=== PATIENT | male | born 1985 | race Caucasian/White ===

== ENCOUNTER 2024-05-03 21:28 | Outpatient (BNV) | payer OTHER, SELFPAY | END 2024-05-15 15:22 | PROVIDERS: Admitting Provider Psychiatry & Neurology Psychiatry; PCP Nurse Practitioner Family; Visit Provider Internal Medicine | DX: F25.1 Schizoaffective disorder, depressive type (principal) | CPT/HCPCS: 93010 ==

== ENCOUNTER 2024-05-03 21:28 | Inpatient (IN) | payer OTHER, SELFPAY ==
--- NOTE | ~2024-05-03 | CT_ITS ---
EXAMINATION: CT FOOT WITHOUT CONTRAST, RIGHT CLINICAL INFORMATION: Pain and instability. Fusion. COMPARISON: Right foot CT dated 04/23/2022. TECHNIQUE: Contiguous axial CT images of the right foot were obtained without contrast. Multiplanar reformats were provided and reviewed. This CT examination was performed using dose optimization techniques as appropriate, variously including the following: *Automated exposure control *Adjustment of mA and/or kV according to patient size (this includes techniques or standardized protocols for targeted exams where dose is matched to indication/reason for exam; i.e. extremities or head) *Use of iterative reconstruction technique DLP: 181 mGy-cm FINDINGS: Oblique orthopedic screw and dorsal orthopedic staple across the first tarsometatarsal joint. Additional dorsal stabilization plates and fixation screws across the second and third tarsometatarsal joints. No hardware fracture. No perihardware lucency to suggest loosening or infection. 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 Prominent osseous bridging along the second tarsometatarsal joint with mild persistence of the joint space medially. Overall osseous bridging appears to involve approximately 80% of the joint surface. Partial osseous bridging across the third tarsometatarsal joint dorsally and laterally in the region of the orthopedic hardware. Osseous bridging involves approximately 40% of the joint surface. No acute fracture or dislocation. Joint space narrowing with subchondral cystic change and marginal osteophytes at the fourth and fifth tarsometatarsal joints. Bone graft donor site within the calcaneus. No concerning lytic or blastic osseous lesion. Tiny dorsal calcaneal spur. No abnormal soft tissue mass or fluid collection. No large joint effusion. The visualized flexor and extensor tendons are grossly intact; however, evaluation is limited on CT examination. CT/CT foot RT wo IV con IMPRESSION: 1. 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 Prominent osseous bridging along the second tarsometatarsal joint involving approximately 80% of the joint surface. Partial osseous bridging across the third tarsometatarsal joint involving approximately 40% of the joint surface. 2. 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
--- NOTE | ~2024-05-03 | XR_ITS ---
EXAMINATION: XR SHOULDER, LEFT CLINICAL INFORMATION: Pain COMPARISON: None available. TECHNIQUE: Three views of the left shoulder. FINDINGS: The bones and soft tissues are normal. No fracture. Glenohumeral and acromioclavicular alignment is anatomic with normal joint space. No abnormal soft tissue calcifications. XR/XR shoulder LT min 2V IMPRESSION: Normal left shoulder.
[2024-05-03 21:52] VITALS: BP 136/75; PULSE 58; RESP 16; TEMP 36.9; O2SAT 98
--- NOTE | 2024-05-03 22:51 | PC.ADMIT ---
Addendum entered by Lila Cheema RN 05/03/24 23:04: PT ARRIVED @ 2139 VIA STRETCHER Original Note: PT TRANSFERED TO FROM [facility] AND HAS AN ACCEPTED CV. PT HAD SKIN CHECK PERFORMED AND PT NOTED AND REPORTED TO HAVE A DX OF ECZEMA AND NUMEROUS SCALEY PATCHES COVERING MOST AREAS OF HIS SKIN. HIS VITALS WERE OBTAINED, AND PT WAS ORIENTED TO THE UNIT. PT IS EXTREMELY PARANOID AND UNABLE TO FULLY PARTICIPATE further in the ADMISSION PROCESS other than to state his was brought in by ambulance after his family tracked his phone and found him standing on the bridge in [place] where he intended to jump to end his life. During assessment pt WAS PREOCCUPIED, PARANOID, AND CONSTANTLY LOOKING OVER HIS SHOULDER and he reported he is having CAH TO CHOKE MYSELF . pT PLACED ON 5MIN CHECKS FOR SAFETY. He WAS EXTREMELY PARANOID WHEN SHOWN HIS ROOM AND WAS UNCOMFORTABLE WITH THE IDEA OF HAVING A ROOM mate SO PT WAS SHOWN TO GROUP ROOM B TO RESIDE AND QUICKLY WENT TO SLEEP. ACCORDING TO NURSE TO NURSE OBTAINED BY THIS STOCK REPLENISHER, PT REPORTED HE IS TRANSGENDER, USES SHE/HER PRONOUNS AND LIKES TO USE THE NAME AURELIO, HOWEVER, WHEN THE PATIENT ARRIVED HE REPORTED HE GOES BY THE NAME MATILDE AND WANTS TO ROOM WITH A MALE.
[2024-05-04 08:33] VITALS: BP 129/80; PULSE 62; RESP 16; TEMP 36.9; O2SAT 98
--- NOTE | 2024-05-04 10:05 | P.HPPS_ITS ---
HPI Date of Service: 05/04/24 Chief Complaint: Unspecified problem related to unspecified psychol Sources of Information: patient interviewed, chart reviewed and crisis/core team assessment reviewed HPI Subjective Notes: Conditional Voluntary Narrative: 39 yo female transgender patient with history of schizoaffective disorder. During the crisis evaluation wanted to be referred to as Mary Beth. Today wants to be referred to as Jonathon. Patient was admitted from [facility]. Patient presented to [facility] crisis with suicidal ideation with a plan to jump off a bridge as well as increased paranoia and command AH to hurt self. Patient reports not taking medications over the past week or so saying I thought I don't need them . Patient unsure of the exact most recent medication regimen. Pharmacy [facility] and they were closed. Focused on anxiety today saying Buspar doesn't help. Also feeling agitated earlier in the day. Pacing and restless. Reports increased AH and paranoia. Difficult to interview initially. When asked if Haldol was prescribed, reports being on Haldol Dec in the past with some benefit and without major side effects. Patient received Haldol 5 mg and Ativan 1 mg. Patient calmed. Was able to say has been homeless after having conflict with parents and was kicked out. Reports was planning on jumping off bridge but parents called and decided not to go ahead with that plan and presented to crisis. Patient also has been burning self on forearm with a steam gigger. Patient also reported OD on Seroquel recently (04/30/24). Past Psychiatric History: Multiple inpatient psychiatric hospital stays including [facility], [place], [facility], [facility]. Reported Hx of TBI age 8. Prior suicide attempts by OD and reportedly tied sheet around neck but decided not to go ahead with the attempt Current treatment at [facility]. Psychiatrist left agency and patient awaiting new psychiatrist. Medical Evaluation Reviewed: Yes [facility] Medical History (Updated 05/04/24 @ 23:00 by Wesly Dodd MD) Schizophrenia Polysubstance use disorder Family History: None reported. Social History: Lived with parents until recently. Raised by family. Struggled with learning and ADHD in school. SSI. [facility] are rep payee. Substance History: Past history of opioid use. Current cannabis use. Trauma History: Bullying Diagnostics Vital Signs (24Hr): Vital Signs - 24 hr 05/03/24 21:52 05/04/24 08:33 Temperature 98.4 F 98.4 F Pulse Rate 58 62 Respiratory Rate 16 16 Blood Pressure 136/75 129/80 Pulse Oximetry 98 98 Oxygen Delivery Method Room Air Room Air Labs 05/04/24 08:34 Meds/Allergies Meds Home Medications ?Medication ?Instructions ?Recorded ?Confirmed ?Type buspirone 10 mg tablet 10 mg PO 6XD 05/04/24 05/04/24 History gabapentin 800 mg tablet 800 mg PO QID 05/04/24 05/04/24 History quetiapine 100 mg tablet 100 mg PO BEDTIME 05/04/24 05/04/24 History Allergies Allergies Allergy/AdvReac Type Severity Reaction Status Date / Time Penicillins Allergy Intermediate Swelling Verified 05/04/24 02:45 acetaminophen [APAP] Allergy Unknown Verified 05/04/24 02:45 hydrocodone Allergy Unknown Verified 05/04/24 02:45 Mental Status Exam Mental Status Exam Narrative: General appearance: Restless, anxious, pacing. Hospital gown. Unshaven. fair hygiene.? Eye contact: WNL. Musculoskeletal: +Psychomotor agitation. Legs bouncing when sitting. Normal muscle strength/tone, Normal gait and station, No abnormal involuntary movements like tremors, EPS or dyskinesia. Normal posture.??? Manner/behavior: Guarded Speech:? Fluent, with normal rate, tone and volume. Language: No receptive or expressive language impairment? Mood: I'm paranoid and anxious Affect: constricted range, irritable, congruent to mood and without lability? Thought process/associations: Linear with no flight of ideas or loose associations.?Perseverates on anxiety? Thought content:Paranoid.?? Hallucinations: AH. Command. Able to ask for help and doesn't have intent or plan to act on AH. No?flashbacks, nightmares or dissociation? ? Suicidality/self-destructive behavior: SI Homicidally/violence: none.? Reliability: fair.? ? Judgment: fair.? ? Insight: fair Cognition: Alert and oriented to time, place and person. Impulse control and emotional regulation: fair. Intelligence estimate: below average.? Assessment & Plan Assessment & Plan (1) Schizoaffective disorder, depressive type: Status: Acute Code(s): F25.1 - Schizoaffective disorder, depressive type Assessment and Plan: Patient with schizoaffective disorder, depressed, with SI and command AH with plan to jump off bridge and reported OD on Seroquel a few days prior to evaluation. Plan: - Admit to inpatient psychiatry - CV - Collateral information from family and providers. - Milieu treatment and group therapy. - Medications: Will give Haldol 5 mg and Ativan 2 mg TID PRN agitation/psychosis. - Social work evaluation. - Disposition planning. Patient educated on: medication risk/benefits and therapeutic strategies Reason for continued inpatient stay Substantial Risk for: harm to self, inability to function and rapid decompensation Statement Statement: I have reviewed the history and physical and performed a pertinent examination on my patient. No changes have occurred unless specified. If the History and Physical was not performed prior to admission, the Hospitalist's service will be consulted for completing the admission physical. Time Spent With Patient Time: Total time managing care of this patient today ____ minutes.
[2024-05-04] MEDS: hydrOXYzine HCL 25 MG TABLET PO ×2 (10:12→17:00)
[2024-05-04 10:15] LABS: Alanine Aminotransferase 20 U/L (0-40); Albumin Level 4.1 g/dL (3.5-5.0); Alkaline Phosphatase 76 U/L (39-117); Anion Gap 11 (12-20); Aspartate Amino Transferase 18 U/L (5-37); Bilirubin Total 0.3 mg/dL (0.0-1.0); Blood Urea Nitrogen 12 mg/dL (9-16); Carbon Dioxide 27 mmol/L (22-29); Chloride 103 mmol/L (96-108); Cholesterol 148 mg/dL (<200); Estimated Glomerular Filt Rate > 60; Glucose Fasting 100 mg/dL (60-99); HDL Cholesterol 43 mg/dL (>40); LDL Cholesterol Calculated 65 mg/dL (<100); Potassium 4.1 mmol/L (3.3-5.1); Sodium 137 mmol/L (135-145); Total Protein 6.9 g/dL (6.5-8.0); Triglycerides 203 mg/dL (<150)
[2024-05-04] MEDS: OLANZapine ODT 10 MG TAB.RAPDIS TRANSLINGU ×2 (10:32→21:35)
[2024-05-04] MEDS: LORazepam 1 MG TABLET PO (11:35)
[2024-05-04] MEDS: HaloperidoL 5 MG TABLET PO ×3 (11:36→21:38)
[2024-05-04] MEDS: Gabapentin 400 MG CAPSULE 800 MG PO ×2 (15:04→21:35)
--- NOTE | 2024-05-04 15:13 | HO.PM.IMCN ---
History of Present Illness Data of Consult Service Date: 05/04/24 Primary Care Provider: Philly Alcantar NP HPI Reason for consult: Admission H&P Pt is a 39-year-old transgender female who prefers to go by Olanta with a PMH significant for?polysubstance use disorder and schizophrenia who is admitted to [facility] psychiatry unit for increasing depression with SI with plan of jumping off a bridge. Medical consult for admission H&P. ?Patient was moved to the common room where they are seeing resting comfortably in bed. Patient is not receptive to interview or exam at this time. Review of medical records from [facility] ED show patient complained of chronic right foot pain for the past several months. Pain was around baseline at time of presentation, and patient reported he has seen Podiatry for this concern and is scheduled for a foot CT in the coming week. Patient otherwise had no acute medical complaints at that time. Did admit to using 2 g of cocaine just prior to presentation. Labs reviewed, grossly unremarkable. Vital signs stable. Review of Systems Review of Systems: Unable to obtain [facility] Medical History (Updated 05/04/24 @ 16:02 by NAOMI Matthews) Schizophrenia Polysubstance use disorder Social History Household Members: None Housing: Homeless Do you presently have visiting nurse or other home services: No Patient Tobacco Use Status: Former Tobacco user Tobacco use type: Cigarette Smoked in Last 30 Days: No e-Cigarette/Vaping Use: Never Used Patient Interested in Nicotine Replacement: No Patient Given Instructions on How to Stop Smoking: No Second Hand Smoke Exposure: No Use of substances other than those prescribed or required for medical reasons: Yes Substance Use Type: Crack/Cocaine, Marijuana and Opiates Substance Use Frequency: Weekly Last Used Substance: Weeks (ago) Currently Displaying Signs/Symptoms of Drug Intoxication Withdrawal: No Any prior treatment program specific to substance use: No Have you been hit, kicked, punched, or otherwise hurt by someone within the past year? If so, by whom?: No Do you feel safe in your current relationship?: No Current Relationship Is there a partner from a previous relationship who is making you feel unsafe now?: No Are you made to feel afraid or neglected: No Advance Directives: No Advance Directives Information Provided: No Suicidal Behavior: History of suicide attemps Current/Past Psychiatric Disorders: Psychotic disorder Wu Symptoms: Anxiety and Command hallucinations Access to Firearms: No Do you have thoughts of harming others: None Do you have a plan to hurt others: No Plan Recently lost weight without trying: No Eating poorly because of decreased appetite: No Nutrition Risks: No Nutritional Risk Poor oral hygiene: No Meds Allergies Allergy/AdvReac Type Severity Reaction Status Date / Time Penicillins Allergy Intermediate Swelling Verified 05/04/24 02:45 acetaminophen [APAP] Allergy Unknown Verified 05/04/24 02:45 hydrocodone Allergy Unknown Verified 05/04/24 02:45 Active Medications: Current Medications Acetaminophen (Acetaminophen 325 Mg Tablet) 650 mg PO Q6H PRN PRN Reason: Headache/Pain Mild Scale (1-3) Al Hydroxide/Mg Hydroxide (Magnesium Hydrox/Alum Hydrox 30 Ml Oral.Susp) 30 ml PO Q6H PRN PRN Reason: Heartburn/Nausea Gabapentin (Gabapentin 400 Mg Capsule) 800 mg PO TID HOLDEN Last Admin: 05/04/24 15:04 Dose: 800 mg Haloperidol (Haloperidol 5 Mg Tablet) 5 mg PO TID PRN PRN Reason: Anxiety Hydroxyzine HCl (Hydroxyzine Hcl 25 Mg Tablet) 25 mg PO Q6H PRN PRN Reason: Anxiety Last Admin: 05/04/24 10:12 Dose: 25 mg Magnesium Hydroxide (Milk Of Magnesia 30 Ml Oral.Susp) 30 ml PO DAILY PRN PRN Reason: Constipation Nicotine Polacrilex (Nicotine Polacrilex 2 Mg Gum) 2 mg BUCCAL Q2H PRN PRN Reason: Nicotine Cravings Olanzapine (Olanzapine Odt 10 Mg Tab.Rapdis) 10 mg TRANSLINGU BID HOLDEN Trazodone HCl (Trazodone Hcl 50 Mg Tablet) 50 mg PO BEDTIME MRX1 PRN PRN Reason: Insomnia Home Medications ?Medication ?Instructions ?Recorded ?Confirmed ?Last Taken ?Type buspirone 10 mg tablet 10 mg PO 6XD 05/04/24 05/04/24 Unknown History gabapentin 800 mg tablet 800 mg PO QID 05/04/24 05/04/24 Unknown History quetiapine 100 mg tablet 100 mg PO BEDTIME 05/04/24 05/04/24 Unknown History Physical Exam Vital Signs and Narrative: Vital Signs: Last Vital Signs Temp 98.4 F 05/04/24 08:33 Pulse 62 05/04/24 08:33 Resp 16 05/04/24 08:33 BP 129/80 05/04/24 08:33 Pulse Ox 98 05/04/24 08:33 O2 Del Method Room Air 05/04/24 08:33 Unable to perform Results Labs 05/04/24 08:34 Labs: Laboratory Results - last 24 hr 05/04/24 08:34 Anion Gap 11 L Estim Creat Clear Calc TNP Estimated GFR > 60 Fasting Glucose 100 H Calcium 9.0 Total Bilirubin 0.3 AST 18 ALT 20 Alkaline Phosphatase 76 Total Protein 6.9 Albumin 4.1 Triglycerides 203 H Cholesterol 148 LDL Cholesterol, Calc 65 HDL Cholesterol 43 Assessment and Plan (1) Medical clearance for psychiatric admission: Status: Acute Plan Pt is a 39-year-old transgender female who prefers to go by Mary Beth with a PMH significant for?polysubstance use disorder and schizophrenia who is admitted to [facility] psychiatry unit for increasing depression with SI with plan of jumping off a bridge. Medical consult for admission H&P. ?Patient was moved to the common room where they are seeing resting comfortably in bed. Patient is not receptive to interview or exam at this time. Mood disorder Plan as per Psychiatry Chronic right foot pain Has been ongoing for many months now Patient has seen Podiatry and has upcoming CT of foot scheduled Follow up outpatient Patient otherwise has no known chronic or acute medical complaints at this time. Will sign off now. Thank you for allowing us to participate in the care of this patient. Please re-consult if any acute issue or need arises.
[2024-05-04] MEDS: LORazepam 1 MG TABLET 2 MG PO ×2 (17:24→21:38)
[2024-05-04] MEDS: traZODone HCL 50 MG TABLET PO (21:35)
[2024-05-05 08:00] VITALS: BP 112/66; PULSE 54; RESP 18; TEMP 36.5; O2SAT 94
[2024-05-05] MEDS: OLANZapine ODT 10 MG TAB.RAPDIS TRANSLINGU (08:52)
[2024-05-05] MEDS: HaloperidoL 5 MG TABLET PO ×3 (08:52→16:02)
[2024-05-05] MEDS: LORazepam 1 MG TABLET 2 MG PO ×3 (08:52→16:02)
[2024-05-05] MEDS: Gabapentin 400 MG CAPSULE 800 MG PO ×3 (08:52→20:42)
--- NOTE | 2024-05-05 09:07 | P.PNPSI_ITS ---
Subjective Subjective Date of Service: 05/05/24 Reason For Visit: Unspecified problem related to unspecified psychol Interim History: Patient continues to be agitated and anxious. Says his symptoms continue and he is having hallucinations. Using haldol and ativan prn with only partial relief. He pushed a MHC last night. Says he was hearing voices to do so. Says VH are command to hurt himself. Says he used to take Seroquel at home. Says that was more effective. Review of Systems Review of Systems Unable to obtain Mental Status Exam Mental Status Exam Narrative: General appearance: Restless, anxious, pacing. Hospital gown. Unshaven. fair hygiene.? Eye contact: WNL. Musculoskeletal: +Psychomotor agitation. Legs bouncing when sitting. Normal muscle strength/tone, Normal gait and station, No abnormal involuntary movements like tremors, EPS or dyskinesia. Normal posture.??? Manner/behavior: Guarded Speech:? Fluent, with normal rate, tone and volume. Language: No receptive or expressive language impairment? Mood: I'm paranoid and anxious Affect: constricted range, irritable, congruent to mood and without lability? Thought process/associations: Linear with no flight of ideas or loose associations.?Perseverates on anxiety? Thought content:Paranoid.?? Hallucinations: AH. Command. Able to ask for help and doesn't have intent or plan to act on AH. No?flashbacks, nightmares or dissociation? ? Suicidality/self-destructive behavior: SI Homicidally/violence: none.? Reliability: fair.? ? Judgment: fair.? ? Insight: fair Cognition: Alert and oriented to time, place and person. Impulse control and emotional regulation: fair. Intelligence estimate: below average.? Diagnostics Vital Signs (24Hr): Vital Signs - 24 hr 05/05/24 08:00 Temperature 97.7 F Pulse Rate 54 Respiratory Rate 18 Blood Pressure 112/66 Pulse Oximetry 94 Oxygen Delivery Method Room Air Labs 05/04/24 08:34 Labs: Laboratory Results - last 48 hr 05/04/24 08:34 Sodium 137 Potassium 4.1 Chloride 103 Carbon Dioxide 27 Anion Gap 11 L BUN 12 Creatinine 0.93 Estim Creat Clear Calc TNP Estimated GFR > 60 Fasting Glucose 100 H Calcium 9.0 Total Bilirubin 0.3 AST 18 ALT 20 Alkaline Phosphatase 76 Total Protein 6.9 Albumin 4.1 Triglycerides 203 H Cholesterol 148 LDL Cholesterol, Calc 65 HDL Cholesterol 43 Medications Medications Current Medications Acetaminophen (Acetaminophen 325 Mg Tablet) 650 mg PO Q6H PRN PRN Reason: Headache/Pain Mild Scale (1-3) Al Hydroxide/Mg Hydroxide (Magnesium Hydrox/Alum Hydrox 30 Ml Oral.Susp) 30 ml PO Q6H PRN PRN Reason: Heartburn/Nausea Gabapentin (Gabapentin 400 Mg Capsule) 800 mg PO TID [facility] Last Admin: 05/05/24 08:52 Dose: 800 mg Haloperidol (Haloperidol 5 Mg Tablet) 5 mg PO TID PRN PRN Reason: Anxiety Last Admin: 05/05/24 08:52 Dose: 5 mg Hydroxyzine HCl (Hydroxyzine Hcl 25 Mg Tablet) 25 mg PO Q6H PRN PRN Reason: Anxiety Last Admin: 05/04/24 17:00 Dose: 25 mg Lorazepam (Lorazepam 1 Mg Tablet) 2 mg PO TID PRN PRN Reason: agitation Last Admin: 05/05/24 08:52 Dose: 2 mg Magnesium Hydroxide (Milk Of Magnesia 30 Ml Oral.Susp) 30 ml PO DAILY PRN PRN Reason: Constipation Nicotine Polacrilex (Nicotine Polacrilex 2 Mg Gum) 2 mg BUCCAL Q2H PRN PRN Reason: Nicotine Cravings Olanzapine (Olanzapine Odt 10 Mg Tab.Rapdis) 10 mg TRANSLINGU BID [facility] Last Admin: 05/05/24 08:52 Dose: 10 mg Trazodone HCl (Trazodone Hcl 50 Mg Tablet) 50 mg PO BEDTIME MRX1 PRN PRN Reason: Insomnia Last Admin: 05/04/24 21:35 Dose: 50 mg Allergies Allergies Allergy/AdvReac Type Severity Reaction Status Date / Time Penicillins Allergy Intermediate Swelling Verified 05/04/24 02:45 acetaminophen [APAP] Allergy Unknown Verified 05/04/24 02:45 hydrocodone Allergy Unknown Verified 05/04/24 02:45 Assessment & Plan Assessment & Plan (1) Schizoaffective disorder, depressive type: Status: Acute Code(s): F25.1 - Schizoaffective disorder, depressive type Assessment and Plan: Patient with schizoaffective disorder, depressed, with SI and command AH with plan to jump off bridge and reported OD on Seroquel a few days prior to evaluation. Plan: - Admit to inpatient psychiatry - CV - Collateral information from family and providers. - Milieu treatment and group therapy. - Medications: Will give Haldol 5 mg and Ativan 2 mg TID PRN agitation/psychosis. - Social work evaluation. - Disposition planning. 02/03: Start Seroquel 200 mg HS. DC Zyprexa. Continue Haldol and Ativan PRN. Reason for continued inpatient stay Substantial Risk for: harm to self, inability to function and rapid decompensation Time Spent With Patient Time: Total time managing care of this patient today ____ minutes.
[2024-05-05] MEDS: hydrOXYzine HCL 25 MG TABLET PO (14:13)
--- NOTE | 2024-05-05 14:36 | PC.NURSE ---
Jonathon was approached at 1409, he was sitting at the kitchen table with a hospital gown tied around his neck, he appeared red, upon approach designer/writer asked if she can remove, Jonathon nodded No, he then stated The voices are telling me to kill myself, designer/writer asked if he can remove it himself, as well as staff support was given. Jonathon removed hospital gown from neck appeared teary, he stated I don't feel safe, I don't feel safe, designer/writer stood with Jonathon, VS obtained, Jonathon denied having any pain. Dr. Dodd notified, Jonathon was put on a 1:1 for safety.
[2024-05-05 14:59] VITALS: BP 122/65; PULSE 78; RESP 18; TEMP 36.9; O2SAT 92
[2024-05-05] MEDS: QUEtiapine Fumarate 100 MG TABLET PO (18:13)
[2024-05-05 20:00] VITALS: BP 136/92; PULSE 108; TEMP 36.4; O2SAT 94
[2024-05-05] MEDS: QUEtiapine Fumarate 200 MG TABLET PO (20:42)
[2024-05-05] MEDS: traZODone HCL 50 MG TABLET PO (20:43)
[2024-05-06 08:00] VITALS: BP 120/75; PULSE 62; RESP 16; TEMP 36.9; O2SAT 97
[2024-05-06] MEDS: hydrOXYzine HCL 25 MG TABLET PO ×2 (08:51→15:05)
[2024-05-06] MEDS: HaloperidoL 5 MG TABLET PO ×3 (08:51→18:49)
[2024-05-06] MEDS: Gabapentin 400 MG CAPSULE 800 MG PO ×3 (08:51→19:47)
[2024-05-06] MEDS: QUEtiapine Fumarate 100 MG TABLET PO ×2 (08:52→19:47)
[2024-05-06] MEDS: LORazepam 1 MG TABLET 2 MG PO ×3 (08:57→18:49)
--- NOTE | 2024-05-06 10:39 | P.PNPSI_ITS ---
Subjective Subjective Date of Service: 05/06/24 Reason For Visit: Unspecified problem related to unspecified psychol Interim History: Review of medications. Pt reports hx of ECT at [place]-hopes to have this again as it was helpful. Asks for a guardian to be appointed for meds, finances, life decisions, I cannot do this alone Can you commit me? Continues with SI, will continue with one to one. Medication Compliance: Yes Side effects from medications: No Attending Groups: No Review of Systems Acute medical concerns: No Medical Review of Systems: unchanged Review of Systems Review of Systems Yes all other systems are reviewed and are negative Mental Status Exam Mental Status Exam Patient Appearance: Fatigued Patient Orientation: Person, Place, Time and Situation Level of Consciousness: Alert Patient Behavior: Talkative, Cooperative, Restless, Anxious, Fearful, Fatigued, Distractible, Isolative and Good Eye Contact Mood Description: Fearful, Anxious and Apprehensive Affect Description: Anxious Patient Cognition Impaired: Yes Ability to Follow Directions: Fair Speech Pattern: Spontaneous Speech Memory Description: Episodic Impaired Hallucinations: None Delusions: Present Perceptual Disturbances: Depersonalization and Derealization Thought Process: Rumination and Goal Oriented Thought Content: positive for Goal Oriented and positive for Perseveration Depressive Symptoms: Increased Anxiety, Loss of Int. in Activity, Thoughts of /Suicide and Difficulty Concentrating Judgement: Fair Diagnostics Vital Signs (24Hr): Vital Signs - 24 hr 05/05/24 14:59 05/05/24 20:00 Temperature 98.4 F 97.5 F Pulse Rate 78 108 H Respiratory Rate 18 Blood Pressure 122/65 136/92 H Pulse Oximetry 92 94 Oxygen Delivery Method Room Air Room Air Labs 05/04/24 08:34 Medications Medications Current Medications Acetaminophen (Acetaminophen 325 Mg Tablet) 650 mg PO Q6H PRN PRN Reason: Headache/Pain Mild Scale (1-3) Al Hydroxide/Mg Hydroxide (Magnesium Hydrox/Alum Hydrox 30 Ml Oral.Susp) 30 ml PO Q6H PRN PRN Reason: Heartburn/Nausea Gabapentin (Gabapentin 400 Mg Capsule) 800 mg PO TID HOLDEN Last Admin: 05/06/24 08:51 Dose: 800 mg Haloperidol (Haloperidol 5 Mg Tablet) 5 mg PO TID PRN PRN Reason: Anxiety Last Admin: 05/06/24 08:51 Dose: 5 mg Hydroxyzine HCl (Hydroxyzine Hcl 25 Mg Tablet) 25 mg PO Q6H PRN PRN Reason: Anxiety Last Admin: 05/06/24 08:51 Dose: 25 mg Lorazepam (Lorazepam 1 Mg Tablet) 2 mg PO TID PRN PRN Reason: agitation Last Admin: 05/06/24 08:57 Dose: 2 mg Magnesium Hydroxide (Milk Of Magnesia 30 Ml Oral.Susp) 30 ml PO DAILY PRN PRN Reason: Constipation Nicotine Polacrilex (Nicotine Polacrilex 2 Mg Gum) 2 mg BUCCAL Q2H PRN PRN Reason: Nicotine Cravings Quetiapine Fumarate (Quetiapine Fumarate 200 Mg Tablet) 200 mg PO BEDTIME HOLDEN Last Admin: 05/05/24 20:42 Dose: 200 mg Quetiapine Fumarate (Quetiapine Fumarate 100 Mg Tablet) 100 mg PO BID PRN PRN Reason: hallucinations Last Admin: 05/06/24 08:52 Dose: 100 mg Trazodone HCl (Trazodone Hcl 50 Mg Tablet) 50 mg PO BEDTIME MRX1 PRN PRN Reason: Insomnia Last Admin: 05/05/24 20:43 Dose: 50 mg Allergies Allergies Allergy/AdvReac Type Severity Reaction Status Date / Time Penicillins Allergy Intermediate Swelling Verified 05/04/24 02:45 acetaminophen [APAP] Allergy Unknown Verified 05/04/24 02:45 hydrocodone Allergy Unknown Verified 05/04/24 02:45 Assessment & Plan Assessment & Plan (1) Schizoaffective disorder, depressive type: Status: Acute Code(s): F25.1 - Schizoaffective disorder, depressive type Assessment and Plan: Patient with schizoaffective disorder, depressed, with SI and command AH with plan to jump off bridge and reported OD on Seroquel a few days prior to evaluation. Plan: - Admit to inpatient psychiatry - CV - Collateral information from family and providers. - Milieu treatment and group therapy. - Medications: Will give Haldol 5 mg and Ativan 2 mg TID PRN agitation/psychosis. - Social work evaluation. - Disposition planning. 02/03: Start Seroquel 200 mg HS. DC Zyprexa. Continue Haldol and Ativan PRN. 02/04 Chlorpromazine 50 mg tid Patient educated on: medication risk/benefits and therapeutic strategies Reason for continued inpatient stay Substantial Risk for: rapid decompensation Time Spent With Patient Time: Total time managing care of this patient today ____ minutes.
[2024-05-06] MEDS: chlorproMAZINE HCl 25 MG TABLET 50 MG PO ×2 (15:07→19:46)
[2024-05-06] MEDS: QUEtiapine Fumarate 200 MG TABLET PO (19:47)
[2024-05-07 08:26] VITALS: BP 135/75; PULSE 56; RESP 16; TEMP 37; O2SAT 95
[2024-05-07] MEDS: HaloperidoL 5 MG TABLET PO ×4 (09:20→20:56)
[2024-05-07] MEDS: Gabapentin 400 MG CAPSULE 800 MG PO ×3 (09:20→20:11)
[2024-05-07] MEDS: chlorproMAZINE HCl 25 MG TABLET 50 MG PO ×3 (09:20→20:10)
[2024-05-07] MEDS: LORazepam 1 MG TABLET 2 MG PO ×2 (09:20→13:00)
[2024-05-07] MEDS: hydrOXYzine HCL 25 MG TABLET PO ×2 (12:48→20:10)
--- NOTE | 2024-05-07 15:59 | HO.PSYCHPN ---
Subjective Subjective Date of Service: 05/07/24 Reason For Visit: Unspecified problem related to unspecified psychol Subjective Notes: Conditional Voluntary Healthcare Proxy: No Guardianship: No Medical Problems Affecting Mental Status: No Interim History: Pt reports not feeling prepared to trial coming off one to one. Ongoing reports of anxiety- not enough medication . Medication Compliance: Yes Side effects from medications: No Attending Groups: No Review of Systems Acute medical concerns: No Medical Review of Systems: unchanged Review of Systems Review of Systems Yes all other systems are reviewed and are negative Mental Status Exam Mental Status Exam Patient Appearance: Fatigued Patient Orientation: Person, Place, Time and Situation Level of Consciousness: Alert Patient Behavior: Talkative, Cooperative, Restless, Anxious, Fearful, Fatigued, Distractible, Isolative and Good Eye Contact Mood Description: Fearful, Anxious and Apprehensive Affect Description: Anxious Patient Cognition Impaired: Yes Ability to Follow Directions: Fair Speech Pattern: Spontaneous Speech Memory Description: Episodic Impaired Hallucinations: None Delusions: Present Perceptual Disturbances: Depersonalization and Derealization Thought Process: Rumination and Goal Oriented Thought Content: positive for Goal Oriented and positive for Perseveration Depressive Symptoms: Increased Anxiety, Loss of Int. in Activity, Thoughts of /Suicide and Difficulty Concentrating Judgement: Fair Diagnostics Vital Signs (24Hr): Vital Signs - 24 hr 05/07/24 08:26 Temperature 98.6 F Pulse Rate 56 Respiratory Rate 16 Blood Pressure 135/75 Pulse Oximetry 95 Oxygen Delivery Method Room Air Labs 05/04/24 08:34 Medications Medications Current Medications Acetaminophen (Acetaminophen 325 Mg Tablet) 650 mg PO Q6H PRN PRN Reason: Headache/Pain Mild Scale (1-3) Al Hydroxide/Mg Hydroxide (Magnesium Hydrox/Alum Hydrox 30 Ml Oral.Susp) 30 ml PO Q6H PRN PRN Reason: Heartburn/Nausea Chlorpromazine HCl (Chlorpromazine Hcl 25 Mg Tablet) 50 mg PO TID HOLDEN Last Admin: 05/07/24 09:20 Dose: 50 mg Gabapentin (Gabapentin 400 Mg Capsule) 800 mg PO TID HOLDEN Last Admin: 05/07/24 09:20 Dose: 800 mg Haloperidol (Haloperidol 5 Mg Tablet) 5 mg PO TID PRN PRN Reason: Anxiety Last Admin: 05/07/24 13:00 Dose: 5 mg Hydroxyzine HCl (Hydroxyzine Hcl 25 Mg Tablet) 25 mg PO Q6H PRN PRN Reason: Anxiety Last Admin: 05/07/24 12:48 Dose: 25 mg Lorazepam (Lorazepam 1 Mg Tablet) 2 mg PO TID PRN PRN Reason: agitation Last Admin: 05/07/24 13:00 Dose: 2 mg Magnesium Hydroxide (Milk Of Magnesia 30 Ml Oral.Susp) 30 ml PO DAILY PRN PRN Reason: Constipation Nicotine Polacrilex (Nicotine Polacrilex 2 Mg Gum) 2 mg BUCCAL Q2H PRN PRN Reason: Nicotine Cravings Quetiapine Fumarate (Quetiapine Fumarate 200 Mg Tablet) 200 mg PO BEDTIME HOLDEN Last Admin: 05/06/24 19:47 Dose: 200 mg Quetiapine Fumarate (Quetiapine Fumarate 100 Mg Tablet) 100 mg PO QID PRN PRN Reason: hallucinations Last Admin: 05/06/24 19:47 Dose: 100 mg Trazodone HCl (Trazodone Hcl 50 Mg Tablet) 50 mg PO BEDTIME MRX1 PRN PRN Reason: Insomnia Last Admin: 05/05/24 20:43 Dose: 50 mg Allergies Allergies Allergy/AdvReac Type Severity Reaction Status Date / Time Penicillins Allergy Intermediate Swelling Verified 05/04/24 02:45 acetaminophen [APAP] Allergy Unknown Verified 05/04/24 02:45 hydrocodone Allergy Unknown Verified 05/04/24 02:45 Assessment & Plan Assessment & Plan (1) Schizoaffective disorder, depressive type: Status: Acute Code(s): F25.1 - Schizoaffective disorder, depressive type Assessment and Plan: Patient with schizoaffective disorder, depressed, with SI and command AH with plan to jump off bridge and reported OD on Seroquel a few days prior to evaluation. Plan: - Admit to inpatient psychiatry - CV - Collateral information from family and providers. - Milieu treatment and group therapy. - Medications: Will give Haldol 5 mg and Ativan 2 mg TID PRN agitation/psychosis. - Social work evaluation. - Disposition planning. 02/03: Start Seroquel 200 mg HS. DC Zyprexa. Continue Haldol and Ativan PRN. 02/05 Continue tx. Reason for continued inpatient stay Substantial Risk for: rapid decompensation Time Spent With Patient Time: Total time managing care of this patient today ____ minutes.
[2024-05-07] MEDS: QUEtiapine Fumarate 100 MG TABLET PO (17:40)
[2024-05-07 20:00] VITALS: BP 150/90; PULSE 96; RESP 20; TEMP 36.7; O2SAT 97
[2024-05-07] MEDS: clonazePAM 1 MG TABLET PO (20:10)
[2024-05-07] MEDS: carBAMazepine ER 200 MG TAB.ER.12H PO (20:10)
[2024-05-07] MEDS: QUEtiapine Fumarate 200 MG TABLET PO (20:10)
[2024-05-07] MEDS: traZODone HCL 50 MG TABLET PO (20:56)
[2024-05-08] MEDS: HaloperidoL 5 MG TABLET PO ×4 (05:39→20:58)
[2024-05-08 08:00] VITALS: BP 136/78; PULSE 76; RESP 16; TEMP 37; O2SAT 96
[2024-05-08] MEDS: carBAMazepine ER 200 MG TAB.ER.12H PO ×2 (09:12→19:39)
[2024-05-08] MEDS: clonazePAM 1 MG TABLET PO ×3 (09:12→19:39)
[2024-05-08] MEDS: chlorproMAZINE HCl 25 MG TABLET 50 MG PO (09:12)
[2024-05-08] MEDS: Gabapentin 400 MG CAPSULE 800 MG PO ×3 (09:12→19:39)
[2024-05-08] MEDS: QUEtiapine Fumarate 100 MG TABLET PO ×2 (11:34→20:58)
[2024-05-08] MEDS: hydrOXYzine HCL 25 MG TABLET PO ×2 (12:37→18:35)
--- NOTE | 2024-05-08 13:19 | HO.PSYCHPN ---
Subjective Subjective Date of Service: 05/08/24 Reason For Visit: Unspecified problem related to unspecified psychol Subjective Notes: Conditional Voluntary Healthcare Proxy: No Guardianship: No Medical Problems Affecting Mental Status: No Interim History: [facility] for [facility] records sent 05/07. Pt reports medications are not effective. Asks for increase in Klonopin/Chlorpromazine. Reports no other current community provider alliances that we should contact for information regarding his care. Discussed med hx. Medication Compliance: Yes Side effects from medications: No Attending Groups: No Review of Systems Acute medical concerns: No Medical Review of Systems: unchanged Review of Systems Review of Systems Yes all other systems are reviewed and are negative Mental Status Exam Mental Status Exam Patient Appearance: Fatigued Patient Orientation: Person, Place, Time and Situation Level of Consciousness: Alert Patient Behavior: Talkative, Cooperative, Restless, Anxious, Fearful, Fatigued, Distractible, Isolative and Good Eye Contact Mood Description: Fearful, Anxious and Apprehensive Affect Description: Anxious Patient Cognition Impaired: Yes Ability to Follow Directions: Fair Speech Pattern: Spontaneous Speech Memory Description: Episodic Impaired Hallucinations: None Delusions: Present Perceptual Disturbances: Depersonalization and Derealization Thought Process: Rumination and Goal Oriented Thought Content: positive for Goal Oriented and positive for Perseveration Depressive Symptoms: Increased Anxiety, Loss of Int. in Activity, Thoughts of /Suicide and Difficulty Concentrating Judgement: Fair Diagnostics Vital Signs (24Hr): Vital Signs - 24 hr 05/07/24 20:00 05/08/24 08:00 Temperature 98.0 F 98.6 F Pulse Rate 96 76 Respiratory Rate 20 16 Blood Pressure 150/90 H 136/78 Pulse Oximetry 97 96 Oxygen Delivery Method Room Air Room Air Labs 05/04/24 08:34 Medications Medications Current Medications Acetaminophen (Acetaminophen 325 Mg Tablet) 650 mg PO Q6H PRN PRN Reason: Headache/Pain Mild Scale (1-3) Al Hydroxide/Mg Hydroxide (Magnesium Hydrox/Alum Hydrox 30 Ml Oral.Susp) 30 ml PO Q6H PRN PRN Reason: Heartburn/Nausea Carbamazepine (Carbamazepine Er 200 Mg Tab.Er.12h) 200 mg PO BID [facility] Last Admin: 05/08/24 09:12 Dose: 200 mg Chlorpromazine HCl (Chlorpromazine Hcl 25 Mg Tablet) 50 mg PO TID [facility] Last Admin: 05/08/24 09:12 Dose: 50 mg Clonazepam (Clonazepam 1 Mg Tablet) 1 mg PO TID [facility] Last Admin: 05/08/24 09:12 Dose: 1 mg Gabapentin (Gabapentin 400 Mg Capsule) 800 mg PO TID HOLDEN Last Admin: 05/08/24 09:12 Dose: 800 mg Haloperidol (Haloperidol 5 Mg Tablet) 5 mg PO TID PRN PRN Reason: Anxiety Last Admin: 05/08/24 11:34 Dose: 5 mg Hydroxyzine HCl (Hydroxyzine Hcl 25 Mg Tablet) 25 mg PO Q6H PRN PRN Reason: Anxiety Last Admin: 05/08/24 12:37 Dose: 25 mg Magnesium Hydroxide (Milk Of Magnesia 30 Ml Oral.Susp) 30 ml PO DAILY PRN PRN Reason: Constipation Nicotine Polacrilex (Nicotine Polacrilex 2 Mg Gum) 2 mg BUCCAL Q2H PRN PRN Reason: Nicotine Cravings Quetiapine Fumarate (Quetiapine Fumarate 200 Mg Tablet) 200 mg PO BEDTIME HOLDEN Last Admin: 05/07/24 20:10 Dose: 200 mg Quetiapine Fumarate (Quetiapine Fumarate 100 Mg Tablet) 100 mg PO QID PRN PRN Reason: hallucinations Last Admin: 05/08/24 11:34 Dose: 100 mg Trazodone HCl (Trazodone Hcl 50 Mg Tablet) 50 mg PO BEDTIME MRX1 PRN PRN Reason: Insomnia Last Admin: 05/07/24 20:56 Dose: 50 mg Allergies Allergies Allergy/AdvReac Type Severity Reaction Status Date / Time Penicillins Allergy Intermediate Swelling Verified 05/04/24 02:45 acetaminophen [APAP] Allergy Unknown Verified 05/04/24 02:45 hydrocodone Allergy Unknown Verified 05/04/24 02:45 Assessment & Plan Assessment & Plan (1) Schizoaffective disorder, depressive type: Status: Acute Code(s): F25.1 - Schizoaffective disorder, depressive type Assessment and Plan: Patient with schizoaffective disorder, depressed, with SI and command AH with plan to jump off bridge and reported OD on Seroquel a few days prior to evaluation. Plan: - Admit to inpatient psychiatry - CV - Collateral information from family and providers. - Milieu treatment and group therapy. - Medications: Will give Haldol 5 mg and Ativan 2 mg TID PRN agitation/psychosis. - Social work evaluation. - Disposition planning. 02/03: Start Seroquel 200 mg HS. DC Zyprexa. Continue Haldol and Ativan PRN. 02/07/24: Increase chlorpromazine to 75 mg tid Increase klonopin to 1 mg qid Reason for continued inpatient stay Substantial Risk for: rapid decompensation Time Spent With Patient Time: Total time managing care of this patient today ____ minutes.
[2024-05-08] MEDS: chlorproMAZINE HCl 25 MG TABLET 75 MG PO ×2 (14:45→19:39)
[2024-05-08] MEDS: traZODone HCL 50 MG TABLET PO (19:39)
[2024-05-08] MEDS: QUEtiapine Fumarate 200 MG TABLET PO (19:39)
[2024-05-08 20:00] VITALS: BP 162/66; PULSE 85; RESP 18; TEMP 36.8; O2SAT 97
[2024-05-08] MEDS: LORazepam 1 MG TABLET 2 MG PO (20:58)
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
[2024-05-09] MEDS: hydrOXYzine HCL 25 MG TABLET PO ×2 (05:37→21:23)
[2024-05-09] MEDS: HaloperidoL 5 MG TABLET PO ×3 (05:37→21:22)
[2024-05-09] MEDS: QUEtiapine Fumarate 100 MG TABLET PO (05:37)
[2024-05-09 08:15] VITALS: BP 120/66; PULSE 82; RESP 20; TEMP 37; O2SAT 97
[2024-05-09] MEDS: clonazePAM 1 MG TABLET PO ×2 (08:16→21:23)
[2024-05-09] MEDS: Gabapentin 400 MG CAPSULE 800 MG PO ×3 (08:17→21:22)
[2024-05-09] MEDS: carBAMazepine ER 200 MG TAB.ER.12H PO ×2 (08:17→21:22)
[2024-05-09] MEDS: chlorproMAZINE HCl 25 MG TABLET 75 MG PO (08:17)
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
[2024-05-09] MEDS: chlorproMAZINE HCl 100 MG TABLET PO ×2 (18:10→21:22)
[2024-05-09 20:00] VITALS: BP 115/62; PULSE 89; RESP 18; TEMP 35.7; O2SAT 98
[2024-05-09] MEDS: QUEtiapine Fumarate 200 MG TABLET PO (21:23)
[2024-05-09] MEDS: traZODone HCL 50 MG TABLET PO (21:23)
[2024-05-10 10:00] VITALS: BP 129/73; PULSE 72; RESP 16; TEMP 37.1; O2SAT 96
--- NOTE | 2024-05-10 10:12 | HO.PSYCHPN ---
Subjective Subjective Date of Service: 05/10/24 Reason For Visit: Unspecified problem related to unspecified psychol Subjective Notes: Conditional Voluntary Healthcare Proxy: No Guardianship: No Medical Problems Affecting Mental Status: No Interim History: Continues to process issue with peer on 05/08. Reports pain in R foot-hx of plate placement x 2. Message left with [facility] to discuss plan of care (Dr. Palmer) Reports regime is useful. [place] [facility] [place]. Consult for ECT ordered. Pt reports this treatment was very helpful. Continues to discuss wanting a guardian and [place]- I would feel safer if someone ran my life for me. Medication Compliance: Yes Side effects from medications: No Attending Groups: Yes Review of Systems Acute medical concerns: No Medical Review of Systems: unchanged Review of Systems Review of Systems Reports R foot pain as he has two surgical plates. Yes all other systems are reviewed and are negative Mental Status Exam Mental Status Exam Patient Appearance: Appropriate Patient Orientation: Person, Place, Time and Situation Level of Consciousness: Alert Patient Behavior: Talkative, Cooperative, Anxious, Fearful, Distractible, Isolative and Good Eye Contact Mood Description: Fearful, Anxious and Apprehensive Affect Description: Anxious Patient Cognition Impaired: Yes Ability to Follow Directions: Fair Speech Pattern: Spontaneous Speech Memory Description: Episodic Impaired Hallucinations: None Delusions: Present Perceptual Disturbances: Depersonalization and Derealization Thought Process: Rumination and Goal Oriented Thought Content: positive for Goal Oriented and positive for Perseveration Depressive Symptoms: Increased Anxiety, Loss of Int. in Activity, Thoughts of /Suicide and Difficulty Concentrating Judgement: Fair Diagnostics Vital Signs (24Hr): Vital Signs - 24 hr 05/09/24 20:00 Temperature 96.3 F L Pulse Rate 89 Respiratory Rate 18 Blood Pressure 115/62 Pulse Oximetry 98 Oxygen Delivery Method Room Air Labs 05/04/24 08:34 Medications Medications Current Medications Acetaminophen (Acetaminophen 325 Mg Tablet) 650 mg PO Q6H PRN PRN Reason: Headache/Pain Mild Scale (1-3) Al Hydroxide/Mg Hydroxide (Magnesium Hydrox/Alum Hydrox 30 Ml Oral.Susp) 30 ml PO Q6H PRN PRN Reason: Heartburn/Nausea Carbamazepine (Carbamazepine Er 200 Mg Tab.Er.12h) 200 mg PO BID [facility] Last Admin: 05/09/24 21:22 Dose: 200 mg Chlorpromazine HCl (Chlorpromazine Hcl 100 Mg Tablet) 100 mg PO TID [facility] Last Admin: 05/09/24 21:22 Dose: 100 mg Clonazepam (Clonazepam 1 Mg Tablet) 1 mg PO BID [facility] Last Admin: 05/09/24 21:23 Dose: 1 mg Gabapentin (Gabapentin 400 Mg Capsule) 800 mg PO TID [facility] Last Admin: 05/09/24 21:22 Dose: 800 mg Haloperidol (Haloperidol 5 Mg Tablet) 5 mg PO TID PRN PRN Reason: Anxiety Last Admin: 05/09/24 21:22 Dose: 5 mg Hydroxyzine HCl (Hydroxyzine Hcl 25 Mg Tablet) 25 mg PO Q6H PRN PRN Reason: Anxiety Last Admin: 05/09/24 21:23 Dose: 25 mg Magnesium Hydroxide (Milk Of Magnesia 30 Ml Oral.Susp) 30 ml PO DAILY PRN PRN Reason: Constipation Nicotine Polacrilex (Nicotine Polacrilex 2 Mg Gum) 2 mg BUCCAL Q2H PRN PRN Reason: Nicotine Cravings Quetiapine Fumarate (Quetiapine Fumarate 200 Mg Tablet) 200 mg PO BEDTIME [facility] Last Admin: 05/09/24 21:23 Dose: 200 mg Quetiapine Fumarate (Quetiapine Fumarate 100 Mg Tablet) 100 mg PO QID PRN PRN Reason: hallucinations Last Admin: 05/09/24 05:37 Dose: 100 mg Trazodone HCl (Trazodone Hcl 50 Mg Tablet) 50 mg PO BEDTIME MRX1 PRN PRN Reason: Insomnia Last Admin: 05/09/24 21:23 Dose: 50 mg Allergies Allergies Allergy/AdvReac Type Severity Reaction Status Date / Time Penicillins Allergy Intermediate Swelling Verified 05/04/24 02:45 acetaminophen [APAP] Allergy Unknown Verified 05/04/24 02:45 hydrocodone Allergy Unknown Verified 05/04/24 02:45 Assessment & Plan Assessment & Plan (1) Schizoaffective disorder, depressive type: Status: Acute Code(s): F25.1 - Schizoaffective disorder, depressive type Assessment and Plan: Patient with schizoaffective disorder, depressed, with SI and command AH with plan to jump off bridge and reported OD on Seroquel a few days prior to evaluation. Plan: - Admit to inpatient psychiatry - CV - Collateral information from family and providers. - Milieu treatment and group therapy. - Medications: Will give Haldol 5 mg and Ativan 2 mg TID PRN agitation/psychosis. - Social work evaluation. - Disposition planning. 02/03: Start Seroquel 200 mg HS. DC Zyprexa. Continue Haldol and Ativan PRN. 02/07/24: Increase chlorpromazine to 75 mg tid Increase klonopin to 1 mg qid 02/09/24 Continue current treatment. Reason for continued inpatient stay Substantial Risk for: rapid decompensation Time Spent With Patient Time: Total time managing care of this patient today ____ minutes.
[2024-05-10] MEDS: Gabapentin 400 MG CAPSULE 800 MG PO ×3 (10:17→20:33)
[2024-05-10] MEDS: clonazePAM 1 MG TABLET PO ×2 (10:17→20:34)
[2024-05-10] MEDS: carBAMazepine ER 200 MG TAB.ER.12H PO (10:17)
[2024-05-10] MEDS: chlorproMAZINE HCl 100 MG TABLET PO ×3 (10:17→20:34)
[2024-05-10] MEDS: HaloperidoL 5 MG TABLET PO ×3 (11:38→20:34)
[2024-05-10] MEDS: hydrOXYzine HCL 25 MG TABLET PO ×2 (11:38→16:01)
[2024-05-10] MEDS: carBAMazepine ER 100 MG TAB.ER.12H 300 MG PO (20:32)
[2024-05-10] MEDS: QUEtiapine Fumarate 100 MG TABLET PO (20:34)
[2024-05-10] MEDS: traZODone HCL 50 MG TABLET PO (20:35)
[2024-05-11] MEDS: HaloperidoL 5 MG TABLET PO ×2 (07:30→15:17)
[2024-05-11] MEDS: hydrOXYzine HCL 25 MG TABLET PO ×2 (07:30→15:17)
[2024-05-11 08:03] VITALS: BP 134/68; PULSE 115; RESP 16; TEMP 36.7; O2SAT 99
[2024-05-11] MEDS: clonazePAM 1 MG TABLET PO ×2 (08:11→21:34)
[2024-05-11] MEDS: carBAMazepine ER 100 MG TAB.ER.12H 300 MG PO ×2 (08:11→21:33)
[2024-05-11] MEDS: Gabapentin 400 MG CAPSULE 800 MG PO ×3 (08:11→21:34)
[2024-05-11] MEDS: chlorproMAZINE HCl 100 MG TABLET PO ×3 (08:11→21:34)
--- NOTE | 2024-05-11 08:52 | P.PNPSI_ITS ---
Subjective Subjective Date of Service: 05/11/24 Reason For Visit: Unspecified problem related to unspecified psychol Subjective Notes: Conditional Voluntary Interim History: Pt reports ongoing depressive sx. Reports he also has had ECT and [facility], he believes in 2018 with success as well. Review of antidepressant trials. He affirms most SSRI trials, no EmSam, Latuda, Vraylar in 2022. Reports symptoms come and go, I feel like I have a split personality at times . Ativan 1 mg give for distress today. Will trial Clonidine bid prn for anxiety. Medication Compliance: Yes Side effects from medications: No Attending Groups: No Review of Systems Acute medical concerns: No Medical Review of Systems: unchanged Review of Systems Review of Systems Yes all other systems are reviewed and are negative (denies) Mental Status Exam Mental Status Exam Patient Appearance: Appropriate Patient Orientation: Person, Place, Time and Situation Level of Consciousness: Alert Patient Behavior: Talkative, Cooperative, Anxious, Fearful, Distractible, Isolative and Good Eye Contact Mood Description: Fearful, Anxious and Apprehensive Affect Description: Anxious Patient Cognition Impaired: Yes Ability to Follow Directions: Fair Speech Pattern: Spontaneous Speech Memory Description: Episodic Impaired Hallucinations: None Delusions: Present Perceptual Disturbances: Depersonalization and Derealization Thought Process: Rumination and Goal Oriented Thought Content: positive for Goal Oriented and positive for Perseveration Depressive Symptoms: Increased Anxiety, Loss of Int. in Activity, Thoughts of /Suicide and Difficulty Concentrating Judgement: Fair Diagnostics Vital Signs (24Hr): Vital Signs - 24 hr 05/10/24 10:00 05/11/24 08:03 Temperature 98.8 F 98.0 F Pulse Rate 72 115 H Respiratory Rate 16 16 Blood Pressure 129/73 134/68 Pulse Oximetry 96 99 Oxygen Delivery Method Room Air Room Air Labs 05/04/24 08:34 Medications Medications Current Medications Acetaminophen (Acetaminophen 325 Mg Tablet) 650 mg PO Q6H PRN PRN Reason: Headache/Pain Mild Scale (1-3) Al Hydroxide/Mg Hydroxide (Magnesium Hydrox/Alum Hydrox 30 Ml Oral.Susp) 30 ml PO Q6H PRN PRN Reason: Heartburn/Nausea Carbamazepine (Carbamazepine Er 100 Mg Tab.Er.12h) 300 mg PO BID [facility] Last Admin: 05/11/24 08:11 Dose: 300 mg Chlorpromazine HCl (Chlorpromazine Hcl 100 Mg Tablet) 100 mg PO TID [facility] Last Admin: 05/11/24 08:11 Dose: 100 mg Clonazepam (Clonazepam 1 Mg Tablet) 1 mg PO BID [facility] Last Admin: 05/11/24 08:11 Dose: 1 mg Gabapentin (Gabapentin 400 Mg Capsule) 800 mg PO TID [facility] Last Admin: 05/11/24 08:11 Dose: 800 mg Haloperidol (Haloperidol 5 Mg Tablet) 5 mg PO TID PRN PRN Reason: Anxiety Last Admin: 05/11/24 07:30 Dose: 5 mg Hydroxyzine HCl (Hydroxyzine Hcl 25 Mg Tablet) 25 mg PO Q4H PRN PRN Reason: Anxiety Last Admin: 05/11/24 07:30 Dose: 25 mg Magnesium Hydroxide (Milk Of Magnesia 30 Ml Oral.Susp) 30 ml PO DAILY PRN PRN Reason: Constipation Nicotine Polacrilex (Nicotine Polacrilex 2 Mg Gum) 2 mg BUCCAL Q2H PRN PRN Reason: Nicotine Cravings Quetiapine Fumarate (Quetiapine Fumarate 100 Mg Tablet) 100 mg PO QID PRN PRN Reason: hallucinations Last Admin: 05/10/24 20:34 Dose: 100 mg Trazodone HCl (Trazodone Hcl 50 Mg Tablet) 50 mg PO BEDTIME MRX1 PRN PRN Reason: Insomnia Last Admin: 05/10/24 20:35 Dose: 50 mg Allergies Allergies Allergy/AdvReac Type Severity Reaction Status Date / Time Penicillins Allergy Intermediate Swelling Verified 05/04/24 02:45 acetaminophen [APAP] Allergy Unknown Verified 05/04/24 02:45 hydrocodone Allergy Unknown Verified 05/04/24 02:45 Assessment & Plan Assessment & Plan (1) Schizoaffective disorder, depressive type: Status: Acute Code(s): F25.1 - Schizoaffective disorder, depressive type Assessment and Plan: Patient with schizoaffective disorder, depressed, with SI and command AH with plan to jump off bridge and reported OD on Seroquel a few days prior to evaluation. Plan: - Admit to inpatient psychiatry - CV - Collateral information from family and providers. - Milieu treatment and group therapy. - Medications: Will give Haldol 5 mg and Ativan 2 mg TID PRN agitation/psychosis. - Social work evaluation. - Disposition planning. 05/05: Start Seroquel 200 mg HS. DC Zyprexa. Continue Haldol and Ativan PRN. 05/08/24: Increase chlorpromazine to 75 mg tid Increase klonopin to 1 mg qid 05/10/24 Continue current treatment. 05/11: Clonidine prn trial for anxiety Request for records from [facility] Reason for continued inpatient stay Substantial Risk for: rapid decompensation Time Spent With Patient Time: Total time managing care of this patient today ____ minutes.
[2024-05-11] MEDS: QUEtiapine Fumarate 100 MG TABLET PO (10:49)
[2024-05-11] MEDS: LORazepam 1 MG TABLET PO (12:00)
[2024-05-11] MEDS: chlorproMAZINE HCl 25 MG TABLET 50 MG PO (14:41)
[2024-05-11 20:00] VITALS: RESP 16; TEMP 37
[2024-05-11] MEDS: traZODone HCL 50 MG TABLET PO (21:33)
[2024-05-12] MEDS: HaloperidoL 5 MG TABLET PO ×3 (03:23→18:06)
[2024-05-12] MEDS: hydrOXYzine HCL 25 MG TABLET PO ×3 (03:23→18:06)
[2024-05-12] MEDS: QUEtiapine Fumarate 100 MG TABLET PO ×2 (06:16→17:21)
[2024-05-12 08:00] VITALS: BP 132/72; PULSE 86; RESP 16; TEMP 37.1; O2SAT 99
[2024-05-12] MEDS: Gabapentin 400 MG CAPSULE 800 MG PO ×3 (08:56→19:40)
[2024-05-12] MEDS: chlorproMAZINE HCl 100 MG TABLET PO ×3 (08:56→19:41)
[2024-05-12] MEDS: clonazePAM 1 MG TABLET PO ×2 (08:56→19:07)
[2024-05-12] MEDS: carBAMazepine ER 100 MG TAB.ER.12H 300 MG PO ×2 (11:35→19:39)
[2024-05-12] MEDS: clonazePAM 0.5 MG TABLET PO (12:34)
--- NOTE | 2024-05-12 12:39 | P.PNPSI_ITS ---
Subjective Subjective Date of Service: 05/12/24 Reason For Visit: Unspecified problem related to unspecified psychol Subjective Notes: Conditional Voluntary Healthcare Proxy: No Guardianship: No Medical Problems Affecting Mental Status: No Interim History: Reports a difficult day yesterday and today with increase of anxiety, depressive sx. Sensitive to activity in milieu, easily triggered. Asks to increase Klonopin, will continue 1 mg bid and add 0.5 mg 12pm Medication Compliance: Yes Side effects from medications: No Attending Groups: No Review of Systems Acute medical concerns: No Medical Review of Systems: unchanged Review of Systems Review of Systems Yes all other systems are reviewed and are negative Mental Status Exam Mental Status Exam Patient Appearance: Appropriate Patient Orientation: Person, Place, Time and Situation Level of Consciousness: Alert Patient Behavior: Talkative, Cooperative, Anxious, Fearful, Distractible, Isolative and Good Eye Contact Mood Description: Fearful, Anxious and Apprehensive Affect Description: Anxious Patient Cognition Impaired: Yes Ability to Follow Directions: Fair Speech Pattern: Spontaneous Speech Memory Description: Episodic Impaired Hallucinations: None Delusions: Present Perceptual Disturbances: Depersonalization and Derealization Thought Process: Rumination and Goal Oriented Thought Content: positive for Goal Oriented and positive for Perseveration Depressive Symptoms: Increased Anxiety, Loss of Int. in Activity, Thoughts of /Suicide and Difficulty Concentrating Judgement: Fair Diagnostics Vital Signs (24Hr): Vital Signs - 24 hr 05/11/24 20:00 05/12/24 08:00 Temperature 98.6 F 98.7 F Pulse Rate 86 Respiratory Rate 16 16 Blood Pressure 132/72 Pulse Oximetry 99 Oxygen Delivery Method Room Air Labs 05/04/24 08:34 Medications Medications Current Medications Acetaminophen (Acetaminophen 325 Mg Tablet) 650 mg PO Q6H PRN PRN Reason: Headache/Pain Mild Scale (1-3) Al Hydroxide/Mg Hydroxide (Magnesium Hydrox/Alum Hydrox 30 Ml Oral.Susp) 30 ml PO Q6H PRN PRN Reason: Heartburn/Nausea Carbamazepine (Carbamazepine Er 100 Mg Tab.Er.12h) 300 mg PO BID [facility] Last Admin: 05/12/24 11:35 Dose: 300 mg Chlorpromazine HCl (Chlorpromazine Hcl 100 Mg Tablet) 100 mg PO TID [facility] Last Admin: 05/12/24 08:56 Dose: 100 mg Clonazepam (Clonazepam 1 Mg Tablet) 1 mg PO BID [facility] Last Admin: 05/12/24 08:56 Dose: 1 mg Clonazepam (Clonazepam 0.5 Mg Tablet) 0.5 mg PO DAILY@1200 [facility] Clonidine HCl (Clonidine Hcl 0.1 Mg Tablet) 0.1 mg PO BID PRN; Protocol PRN Reason: anxiety Gabapentin (Gabapentin 400 Mg Capsule) 800 mg PO TID [facility] Last Admin: 05/12/24 08:56 Dose: 800 mg Haloperidol (Haloperidol 5 Mg Tablet) 5 mg PO TID PRN PRN Reason: Anxiety Last Admin: 05/12/24 11:36 Dose: 5 mg Hydroxyzine HCl (Hydroxyzine Hcl 25 Mg Tablet) 25 mg PO Q4H PRN PRN Reason: Anxiety Last Admin: 05/12/24 11:37 Dose: 25 mg Magnesium Hydroxide (Milk Of Magnesia 30 Ml Oral.Susp) 30 ml PO DAILY PRN PRN Reason: Constipation Nicotine Polacrilex (Nicotine Polacrilex 2 Mg Gum) 2 mg BUCCAL Q2H PRN PRN Reason: Nicotine Cravings Quetiapine Fumarate (Quetiapine Fumarate 100 Mg Tablet) 100 mg PO QID PRN PRN Reason: hallucinations Last Admin: 05/12/24 06:16 Dose: 100 mg Trazodone HCl (Trazodone Hcl 50 Mg Tablet) 50 mg PO BEDTIME MRX1 PRN PRN Reason: Insomnia Last Admin: 05/11/24 21:33 Dose: 50 mg Allergies Allergies Allergy/AdvReac Type Severity Reaction Status Date / Time Penicillins Allergy Intermediate Swelling Verified 05/04/24 02:45 acetaminophen [APAP] Allergy Unknown Verified 05/04/24 02:45 hydrocodone Allergy Unknown Verified 05/04/24 02:45 Assessment & Plan Assessment & Plan (1) Schizoaffective disorder, depressive type: Status: Acute Code(s): F25.1 - Schizoaffective disorder, depressive type Assessment and Plan: Patient with schizoaffective disorder, depressed, with SI and command AH with plan to jump off bridge and reported OD on Seroquel a few days prior to evaluation. Plan: - Admit to inpatient psychiatry - CV - Collateral information from family and providers. - Milieu treatment and group therapy. - Medications: Will give Haldol 5 mg and Ativan 2 mg TID PRN agitation/psychosis. - Social work evaluation. - Disposition planning. 05/05: Start Seroquel 200 mg HS. DC Zyprexa. Continue Haldol and Ativan PRN. 05/08/24: Increase chlorpromazine to 75 mg tid Increase klonopin to 1 mg qid 05/10/24 Continue current treatment. 05/12/24 Klonopin 0.5 mg 12pm Reason for continued inpatient stay Substantial Risk for: rapid decompensation Time Spent With Patient Time: Total time managing care of this patient today ____ minutes.
[2024-05-12 17:21] VITALS: BP 164/82
[2024-05-12] MEDS: cloNIDine HCL 0.1 MG TABLET PO (17:21)
[2024-05-12] MEDS: Milk of Magnesia 30 ML ORAL.SUSP PO (17:21)
[2024-05-12 20:00] VITALS: BP 130/81; PULSE 85; RESP 16; TEMP 36.3; O2SAT 98
[2024-05-13] MEDS: traZODone HCL 50 MG TABLET PO (01:07)
[2024-05-13 01:08] VITALS: BP 116/59
[2024-05-13] MEDS: cloNIDine HCL 0.1 MG TABLET PO (01:08)
--- NOTE | 2024-05-13 01:11 | PC.NURSE ---
@ 0105 pt arrives to nurses station requesting PRN medications for anxiety. When this RN asked about any triggers or if anything specific was bothering pt, pt stated Life when RN asked if pt could elaborate pt states I am having trouble sleeping This RN discussed with pt that pt has 1 to 1 observer at all times and even this RN has acted as observer at times this shift, during which, Pt has been sleeping. Audible snoring noted, eyes closed, respirations even and regular, pt not responsive to regular voice at several points. Pt states That's not true and I haven't slept at all . Pt unable to stand up straight or maintain eyes open at this time. VSS. PRN meds provided after education.
[2024-05-13 08:00] VITALS: BP 122/74; PULSE 67; RESP 20; TEMP 36.9; O2SAT 97
[2024-05-13] MEDS: clonazePAM 1 MG TABLET PO ×2 (08:44→21:17)
[2024-05-13] MEDS: carBAMazepine ER 100 MG TAB.ER.12H 300 MG PO ×2 (08:44→21:16)
[2024-05-13] MEDS: Gabapentin 400 MG CAPSULE 800 MG PO ×3 (08:45→21:16)
[2024-05-13] MEDS: chlorproMAZINE HCl 100 MG TABLET PO ×4 (08:45→21:17)
[2024-05-13] MEDS: HaloperidoL 5 MG TABLET PO (11:07)
[2024-05-13] MEDS: clonazePAM 0.5 MG TABLET PO (12:07)
[2024-05-13] MEDS: hydrOXYzine HCL 25 MG TABLET PO ×2 (13:08→18:33)
[2024-05-13] MEDS: Magnesium Hydrox/Alum Hydrox 30 ML ORAL.SUSP PO (14:23)
--- NOTE | 2024-05-13 17:03 | P.PNPSI_ITS ---
Subjective Subjective Date of Service: 05/13/24 Reason For Visit: Unspecified problem related to unspecified psychol Subjective Notes: Conditional Voluntary Healthcare Proxy: No Guardianship: No Medical Problems Affecting Mental Status: No Interim History: Pt, in response to milieu escalation on 05/12 telling team he wants to kick the door open, elope and use the restraint chair. Remains on one to one, declines groups, milieu activity and is focused on medications and having ECT. Medication Compliance: Yes Side effects from medications: No Attending Groups: No Review of Systems Acute medical concerns: No Medical Review of Systems: unchanged Review of Systems Review of Systems Yes all other systems are reviewed and are negative Mental Status Exam Mental Status Exam Patient Appearance: Appropriate Patient Orientation: Person, Place, Time and Situation Level of Consciousness: Alert Patient Behavior: Talkative, Cooperative, Anxious, Fearful, Distractible, Isolative and Good Eye Contact Mood Description: Fearful, Anxious and Apprehensive Affect Description: Anxious Patient Cognition Impaired: Yes Ability to Follow Directions: Fair Speech Pattern: Spontaneous Speech Memory Description: Episodic Impaired Hallucinations: None Delusions: Present Perceptual Disturbances: Depersonalization and Derealization Thought Process: Rumination and Goal Oriented Thought Content: positive for Goal Oriented and positive for Perseveration Depressive Symptoms: Increased Anxiety, Loss of Int. in Activity, Thoughts of /Suicide and Difficulty Concentrating Judgement: Fair Diagnostics Vital Signs (24Hr): Vital Signs - 24 hr 05/12/24 17:21 05/12/24 20:00 05/13/24 01:08 Temperature 97.4 F Pulse Rate 85 Respiratory Rate 16 Blood Pressure 164/82 H 130/81 116/59 L Pulse Oximetry 98 Oxygen Delivery Method Room Air 05/13/24 08:00 Temperature 98.4 F Pulse Rate 67 Respiratory Rate 20 Blood Pressure 122/74 Pulse Oximetry 97 Oxygen Delivery Method Room Air Labs 05/04/24 08:34 Medications Medications Current Medications Acetaminophen (Acetaminophen 325 Mg Tablet) 650 mg PO Q6H PRN PRN Reason: Headache/Pain Mild Scale (1-3) Al Hydroxide/Mg Hydroxide (Magnesium Hydrox/Alum Hydrox 30 Ml Oral.Susp) 30 ml PO Q6H PRN PRN Reason: Heartburn/Nausea Last Admin: 05/13/24 14:23 Dose: 30 ml Carbamazepine (Carbamazepine Er 100 Mg Tab.Er.12h) 300 mg PO BID [facility] Last Admin: 05/13/24 08:44 Dose: 300 mg Chlorpromazine HCl (Chlorpromazine Hcl 100 Mg Tablet) 100 mg PO TID [facility] Last Admin: 05/13/24 14:23 Dose: 100 mg Clonazepam (Clonazepam 1 Mg Tablet) 1 mg PO BID [facility] Last Admin: 05/13/24 08:44 Dose: 1 mg Clonazepam (Clonazepam 0.5 Mg Tablet) 0.5 mg PO DAILY@1200 [facility] Last Admin: 05/13/24 12:07 Dose: 0.5 mg Clonidine HCl (Clonidine Hcl 0.1 Mg Tablet) 0.1 mg PO BID PRN; Protocol PRN Reason: anxiety Last Admin: 05/13/24 01:08 Dose: 0.1 mg Gabapentin (Gabapentin 400 Mg Capsule) 800 mg PO TID [facility] Last Admin: 05/13/24 14:22 Dose: 800 mg Haloperidol (Haloperidol 5 Mg Tablet) 5 mg PO TID PRN PRN Reason: Anxiety Last Admin: 05/13/24 11:07 Dose: 5 mg Hydroxyzine HCl (Hydroxyzine Hcl 25 Mg Tablet) 25 mg PO Q4H PRN PRN Reason: Anxiety Last Admin: 05/13/24 13:08 Dose: 25 mg Magnesium Hydroxide (Milk Of Magnesia 30 Ml Oral.Susp) 30 ml PO DAILY PRN PRN Reason: Constipation Last Admin: 05/12/24 17:21 Dose: 30 ml Nicotine Polacrilex (Nicotine Polacrilex 2 Mg Gum) 2 mg BUCCAL Q2H PRN PRN Reason: Nicotine Cravings Quetiapine Fumarate (Quetiapine Fumarate 100 Mg Tablet) 100 mg PO QID PRN PRN Reason: hallucinations Last Admin: 05/12/24 17:21 Dose: 100 mg Trazodone HCl (Trazodone Hcl 50 Mg Tablet) 50 mg PO BEDTIME MRX1 PRN PRN Reason: Insomnia Last Admin: 05/13/24 01:07 Dose: 50 mg Allergies Allergies Allergy/AdvReac Type Severity Reaction Status Date / Time Penicillins Allergy Intermediate Swelling Verified 05/04/24 02:45 acetaminophen [APAP] Allergy Unknown Verified 05/04/24 02:45 hydrocodone Allergy Unknown Verified 05/04/24 02:45 Assessment & Plan Assessment & Plan (1) Schizoaffective disorder, depressive type: Status: Acute Code(s): F25.1 - Schizoaffective disorder, depressive type Assessment and Plan: Patient with schizoaffective disorder, depressed, with SI and command AH with plan to jump off bridge and reported OD on Seroquel a few days prior to evaluation. Plan: - Admit to inpatient psychiatry - CV - Collateral information from family and providers. - Milieu treatment and group therapy. - Medications: Will give Haldol 5 mg and Ativan 2 mg TID PRN agitation/psychosis. - Social work evaluation. - Disposition planning. 02/03: Start Seroquel 200 mg HS. DC Zyprexa. Continue Haldol and Ativan PRN. 02/07/24: Increase chlorpromazine to 75 mg tid Increase klonopin to 1 mg qid 02/09/24 Continue current treatment. 05/13: Continue tx Reason for continued inpatient stay Substantial Risk for: rapid decompensation Time Spent With Patient Time: Total time managing care of this patient today ____ minutes.
[2024-05-14] MEDS: hydrOXYzine HCL 25 MG TABLET PO ×2 (04:15→17:15)
[2024-05-14] MEDS: traZODone HCL 50 MG TABLET PO ×3 (04:15→22:32)
[2024-05-14] MEDS: HaloperidoL 5 MG TABLET PO ×3 (07:14→22:32)
[2024-05-14 07:20] VITALS: BP 132/83
[2024-05-14] MEDS: cloNIDine HCL 0.1 MG TABLET PO ×2 (07:20→22:31)
[2024-05-14 08:15] VITALS: BP 132/83; PULSE 104; RESP 16; TEMP 36.2; O2SAT 98
[2024-05-14] MEDS: carBAMazepine ER 100 MG TAB.ER.12H 300 MG PO ×2 (08:53→21:16)
[2024-05-14] MEDS: Gabapentin 400 MG CAPSULE 800 MG PO ×3 (08:53→21:16)
[2024-05-14] MEDS: chlorproMAZINE HCl 100 MG TABLET PO ×3 (08:54→21:17)
[2024-05-14] MEDS: clonazePAM 1 MG TABLET PO ×2 (08:54→21:16)
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
[2024-05-14] MEDS: clonazePAM 0.5 MG TABLET PO (11:53)
[2024-05-14] MEDS: Acetaminophen 325 MG TABLET 650 MG PO ×2 (11:53→18:15)
[2024-05-14] MEDS: Sertraline HCL 50 MG TABLET PO (12:22)
[2024-05-14 13:24] VITALS: BP 118/57; PULSE 83; RESP 20; O2SAT 97
[2024-05-14] MEDS: QUEtiapine Fumarate 100 MG TABLET PO (17:15)
[2024-05-14 20:00] VITALS: BP 151/86; PULSE 64; RESP 16; TEMP 36.9; O2SAT 95
--- NOTE | 2024-05-15 | ECG_ITS ---
Test Reason : R/O QTC PROLONGATION Blood Pressure : / mmHG Vent. Rate : 082 BPM Atrial Rate : 082 BPM P-R Int : 174 ms QRS Dur : 102 ms QT Int : 404 ms P-R-T Axes : 060 044 039 degrees QTc Int : 472 ms Normal sinus rhythm Normal ECG When compared with ECG of 13-MAY-2016 11:16, No significant change was found Referred By: Laura Aaron Electronically Signed By:IVANA HANYES
[2024-05-15] MEDS: hydrOXYzine HCL 25 MG TABLET PO (02:40)
[2024-05-15] MEDS: QUEtiapine Fumarate 100 MG TABLET PO (02:40)
[2024-05-15] MEDS: Acetaminophen 325 MG TABLET 650 MG PO (04:06)
[2024-05-15] MEDS: HaloperidoL 5 MG TABLET PO ×4 (04:06→21:26)
[2024-05-15] MEDS: carBAMazepine ER 100 MG TAB.ER.12H 300 MG PO ×2 (08:18→21:26)
[2024-05-15] MEDS: Gabapentin 400 MG CAPSULE 800 MG PO ×3 (08:19→21:26)
[2024-05-15] MEDS: chlorproMAZINE HCl 100 MG TABLET PO ×3 (08:19→21:26)
[2024-05-15] MEDS: clonazePAM 1 MG TABLET PO ×2 (08:19→21:26)
[2024-05-15] MEDS: Sertraline HCL 50 MG TABLET PO (08:19)
[2024-05-15 08:20] VITALS: BP 125/62; PULSE 68; RESP 16; TEMP 37; O2SAT 97
--- NOTE | 2024-05-15 11:08 | HO.ECTCONS_ITS ---
History of Present Illness Data of Consult Primary Care Provider: Philly Alcantar NP [facility] Medical History (Updated 05/04/24 @ 23:00 by Wesly Dodd MD) Schizophrenia Polysubstance use disorder Social History Household Members: None Housing: Homeless Do you presently have visiting nurse or other home services: No Patient Tobacco Use Status: Former Tobacco user Tobacco use type: Cigarette Smoked in Last 30 Days: No e-Cigarette/Vaping Use: Never Used Patient Interested in Nicotine Replacement: No Patient Given Instructions on How to Stop Smoking: No Second Hand Smoke Exposure: No Use of substances other than those prescribed or required for medical reasons: Yes Substance Use Type: Crack/Cocaine, Marijuana and Opiates Substance Use Frequency: Weekly Last Used Substance: Weeks (ago) Currently Displaying Signs/Symptoms of Drug Intoxication Withdrawal: No Any prior treatment program specific to substance use: No Have you been hit, kicked, punched, or otherwise hurt by someone within the past year? If so, by whom?: No Do you feel safe in your current relationship?: No Current Relationship Is there a partner from a previous relationship who is making you feel unsafe now?: No Are you made to feel afraid or neglected: No Advance Directives: No Advance Directives Information Provided: No Suicidal Behavior: History of suicide attemps Current/Past Psychiatric Disorders: Chronic mental illess, Mood disorder and Psychotic disorder Wu Symptoms: Anhedonia, Anxiety, Command hallucinations and Impulsivity Access to Firearms: No Do you have thoughts of harming others: None Do you have a plan to hurt others: No Plan Recently lost weight without trying: No Eating poorly because of decreased appetite: No Nutrition Risks: No Nutritional Risk Poor oral hygiene: No service: No Sexual orientation: Unable to collect Meds Allergies Allergy/AdvReac Type Severity Reaction Status Date / Time Penicillins Allergy Intermediate Swelling Verified 05/04/24 02:45 acetaminophen [APAP] Allergy Unknown Verified 05/04/24 02:45 hydrocodone Allergy Unknown Verified 05/04/24 02:45 Active Medications: Current Medications Acetaminophen (Acetaminophen 325 Mg Tablet) 650 mg PO Q6H PRN PRN Reason: Headache/Pain Mild Scale (1-3) Last Admin: 05/15/24 04:06 Dose: 650 mg Al Hydroxide/Mg Hydroxide (Magnesium Hydrox/Alum Hydrox 30 Ml Oral.Susp) 30 ml PO Q6H PRN PRN Reason: Heartburn/Nausea Last Admin: 05/13/24 14:23 Dose: 30 ml Carbamazepine (Carbamazepine Er 100 Mg Tab.Er.12h) 300 mg PO BID [facility] Last Admin: 05/15/24 08:18 Dose: 300 mg Chlorpromazine HCl (Chlorpromazine Hcl 100 Mg Tablet) 100 mg PO TID [facility] Last Admin: 05/15/24 08:19 Dose: 100 mg Clonazepam (Clonazepam 1 Mg Tablet) 1 mg PO BID [facility] Last Admin: 05/15/24 08:19 Dose: 1 mg Clonazepam (Clonazepam 0.5 Mg Tablet) 0.5 mg PO DAILY@1200 [facility] Last Admin: 05/14/24 11:53 Dose: 0.5 mg Clonidine HCl (Clonidine Hcl 0.1 Mg Tablet) 0.1 mg PO BID PRN; Protocol PRN Reason: anxiety Last Admin: 05/14/24 22:31 Dose: 0.1 mg Gabapentin (Gabapentin 400 Mg Capsule) 800 mg PO TID [facility] Last Admin: 05/15/24 08:19 Dose: 800 mg Haloperidol (Haloperidol 5 Mg Tablet) 5 mg PO TID PRN PRN Reason: Anxiety Last Admin: 05/15/24 04:06 Dose: 5 mg Hydroxyzine HCl (Hydroxyzine Hcl 25 Mg Tablet) 25 mg PO Q4H PRN PRN Reason: Anxiety Last Admin: 05/15/24 02:40 Dose: 25 mg Magnesium Hydroxide (Milk Of Magnesia 30 Ml Oral.Susp) 30 ml PO DAILY PRN PRN Reason: Constipation Last Admin: 05/12/24 17:21 Dose: 30 ml Nicotine Polacrilex (Nicotine Polacrilex 2 Mg Gum) 2 mg BUCCAL Q2H PRN PRN Reason: Nicotine Cravings Quetiapine Fumarate (Quetiapine Fumarate 100 Mg Tablet) 100 mg PO QID PRN PRN Reason: hallucinations Last Admin: 05/15/24 02:40 Dose: 100 mg Sertraline HCl (Sertraline Hcl 50 Mg Tablet) 50 mg PO DAILY [facility] Last Admin: 05/15/24 08:19 Dose: 50 mg Trazodone HCl (Trazodone Hcl 50 Mg Tablet) 50 mg PO BEDTIME MRX1 PRN PRN Reason: Insomnia Last Admin: 05/14/24 22:32 Dose: 50 mg Home Medications ?Medication ?Instructions ?Recorded ?Confirmed ?Last Taken ?Type buspirone 10 mg tablet 10 mg PO 6XD 05/04/24 05/04/24 Unknown History gabapentin 800 mg tablet 800 mg PO QID 05/04/24 05/04/24 Unknown History quetiapine 100 mg tablet 100 mg PO BEDTIME 05/04/24 05/04/24 Unknown History Physical Exam 2 Vital Signs and Narrative: Vital Signs: Last Vital Signs Temp 98.6 F 05/15/24 08:20 Pulse 68 05/15/24 08:20 Resp 16 05/15/24 08:20 BP 125/62 05/15/24 08:20 Pulse Ox 97 05/15/24 08:20 O2 Del Method Room Air 05/15/24 08:20 Results Labs 05/04/24 08:34 Imaging Radiologist's Impressions: Impressions Shoulder X-Ray 05/14/24 19:00 IMPRESSION: Normal left shoulder. Foot CT 05/14/24 19:35 IMPRESSION: 1. 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 Prominent osseous bridging along the second tarsometatarsal joint involving approximately 80% of the joint surface. Partial osseous bridging across the third tarsometatarsal joint involving approximately 40% of the joint surface. 2. 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
[2024-05-15] MEDS: Ibuprofen 800 MG TABLET PO (11:34)
[2024-05-15] MEDS: clonazePAM 0.5 MG TABLET PO ×2 (11:34→16:06)
--- NOTE | 2024-05-15 11:35 | PC.NURSE ---
pt is chewing scheduled ativan and reports, it makes it work faster
[2024-05-15 16:06] VITALS: BP 115/62
[2024-05-15] MEDS: cloNIDine HCL 0.1 MG TABLET PO (16:06)
--- NOTE | 2024-05-15 16:06 | PC.NURSE ---
Provider ordered one time doses of Clonidine 0.1mg, haldol 5mg, and clonazapam 0.5mg. Attempted to wake pt for vitals 3 times w/ no response. Respirations were even and unlabored. Pt did not wake until TW mentioned, Jonathon, wake up, I have Klonopin for you Pt woke, allowed for vitals. Medications administered without affect.
[2024-05-15 18:06] LABS: Carbamazepine Tegretol 6.8 mcg/mL (5.0-12.0)
[2024-05-15] MEDS: traZODone HCL 50 MG TABLET PO (21:26)
[2024-05-16] MEDS: QUEtiapine Fumarate 100 MG TABLET PO (04:55)
[2024-05-16] MEDS: hydrOXYzine HCL 25 MG TABLET PO ×2 (04:55→23:51)
[2024-05-16] MEDS: Sertraline HCL 50 MG TABLET PO (10:15)
[2024-05-16] MEDS: Gabapentin 400 MG CAPSULE 800 MG PO ×3 (10:15→20:49)
[2024-05-16] MEDS: carBAMazepine ER 100 MG TAB.ER.12H 300 MG PO ×2 (10:15→20:50)
[2024-05-16] MEDS: clonazePAM 1 MG TABLET PO ×2 (10:16→20:49)
[2024-05-16] MEDS: chlorproMAZINE HCl 100 MG TABLET PO ×3 (10:16→20:49)
[2024-05-16] MEDS: Acetaminophen 325 MG TABLET 650 MG PO (10:20)
--- NOTE | 2024-05-16 10:53 | HO.PSYCHPN ---
Subjective Subjective Date of Service: 05/16/24 Reason For Visit: Unspecified problem related to unspecified psychol Subjective Notes: Conditional Voluntary Healthcare Proxy: No Guardianship: No Medical Problems Affecting Mental Status: No Interim History: Met with pt and Edita Barone LCSW. Remains on one to one with a move to [facility] next to nursing station. Review of behavioral sx of 05/15 with head banging and plan to hold on ECT and observe. Discussed behavioral planning Pt presents as depressed, some response to interventions, untruthful when questioned regarding history and precipitating factors (family has provided information) Encouraged to participate in milieu, behavioral plan and to walk for three laps in the [place] once per day. Team will reach out to [facility]. Pt asks that Seroquel be discontinued. Will continue prn Seroquel. Medication Compliance: Yes Side effects from medications: No Attending Groups: No Review of Systems Acute medical concerns: No Medical Review of Systems: unchanged Review of Systems Review of Systems Yes all other systems are reviewed and are negative Mental Status Exam Mental Status Exam Patient Appearance: Appropriate Patient Orientation: Person, Place, Time and Situation Level of Consciousness: Alert Patient Behavior: Talkative, Cooperative, Anxious, Fearful, Distractible, Isolative and Good Eye Contact Mood Description: Depressed, Fearful, Anxious and Apprehensive Affect Description: Depressed, Anxious and Flat Patient Cognition Impaired: Yes Ability to Follow Directions: Fair Speech Pattern: Spontaneous Speech Memory Description: Episodic Impaired Hallucinations: None Delusions: Present Perceptual Disturbances: Depersonalization and Derealization Thought Process: Rumination and Goal Oriented Thought Content: positive for Goal Oriented, positive for Perseveration and positive for Suicidal Ideation Depressive Symptoms: Increased Anxiety, Loss of Int. in Activity, Thoughts of /Suicide and Difficulty Concentrating Judgement: Fair Diagnostics Vital Signs (24Hr): Vital Signs - 24 hr 05/15/24 16:06 Blood Pressure 115/62 Labs 05/04/24 08:34 Labs: Laboratory Results - last 48 hr 05/15/24 17:38 Carbamazepine 6.8 Imaging Radiology Impressions: ITS Impressions Shoulder X-Ray 05/14/24 19:00 IMPRESSION: Normal left shoulder. Foot CT 05/14/24 19:35 IMPRESSION: 1. 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 Prominent osseous bridging along the second tarsometatarsal joint involving approximately 80% of the joint surface. Partial osseous bridging across the third tarsometatarsal joint involving approximately 40% of the joint surface. 2. 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 Medications Medications Current Medications Acetaminophen (Acetaminophen 325 Mg Tablet) 650 mg PO Q6H PRN PRN Reason: Headache/Pain Mild Scale (1-3) Last Admin: 05/16/24 10:20 Dose: 650 mg Al Hydroxide/Mg Hydroxide (Magnesium Hydrox/Alum Hydrox 30 Ml Oral.Susp) 30 ml PO Q6H PRN PRN Reason: Heartburn/Nausea Last Admin: 05/13/24 14:23 Dose: 30 ml Capsaicin (Capsaicin 0.025% Cream 60 Gm Tube) 1 appl TOPICAL QID PRN; Protocol PRN Reason: shoulder, ankle pain Carbamazepine (Carbamazepine Er 100 Mg Tab.Er.12h) 300 mg PO BID [facility] Last Admin: 05/16/24 10:15 Dose: 300 mg Chlorpromazine HCl (Chlorpromazine Hcl 100 Mg Tablet) 100 mg PO TID [facility] Last Admin: 05/16/24 10:16 Dose: 100 mg Clonazepam (Clonazepam 1 Mg Tablet) 1 mg PO BID [facility] Last Admin: 05/16/24 10:16 Dose: 1 mg Clonazepam (Clonazepam 0.5 Mg Tablet) 0.5 mg PO DAILY@1200 [facility] Last Admin: 05/15/24 11:34 Dose: 0.5 mg Clonidine HCl (Clonidine Hcl 0.1 Mg Tablet) 0.1 mg PO BID PRN; Protocol PRN Reason: anxiety Last Admin: 05/14/24 22:31 Dose: 0.1 mg Gabapentin (Gabapentin 400 Mg Capsule) 800 mg PO TID [facility] Last Admin: 05/16/24 10:15 Dose: 800 mg Haloperidol (Haloperidol 5 Mg Tablet) 5 mg PO TID PRN PRN Reason: Anxiety Last Admin: 05/15/24 21:26 Dose: 5 mg Hydroxyzine HCl (Hydroxyzine Hcl 25 Mg Tablet) 25 mg PO Q4H PRN PRN Reason: Anxiety Last Admin: 05/16/24 04:55 Dose: 25 mg Ibuprofen (Ibuprofen 800 Mg Tablet) 800 mg PO Q8H PRN PRN Reason: shoulder, foot pain Last Admin: 05/15/24 11:34 Dose: 800 mg Magnesium Hydroxide (Milk Of Magnesia 30 Ml Oral.Susp) 30 ml PO DAILY PRN PRN Reason: Constipation Last Admin: 05/12/24 17:21 Dose: 30 ml Nicotine Polacrilex (Nicotine Polacrilex 2 Mg Gum) 2 mg BUCCAL Q2H PRN PRN Reason: Nicotine Cravings Quetiapine Fumarate (Quetiapine Fumarate 100 Mg Tablet) 100 mg PO QID PRN PRN Reason: hallucinations Last Admin: 05/16/24 04:55 Dose: 100 mg Sertraline HCl (Sertraline Hcl 50 Mg Tablet) 50 mg PO DAILY [facility] Last Admin: 05/16/24 10:15 Dose: 50 mg Trazodone HCl (Trazodone Hcl 50 Mg Tablet) 50 mg PO BEDTIME MRX1 PRN PRN Reason: Insomnia Last Admin: 05/15/24 21:26 Dose: 50 mg Allergies Allergies Allergy/AdvReac Type Severity Reaction Status Date / Time Penicillins Allergy Intermediate Swelling Verified 05/04/24 02:45 acetaminophen [APAP] Allergy Unknown Verified 05/04/24 02:45 hydrocodone Allergy Unknown Verified 05/04/24 02:45 Assessment & Plan Assessment & Plan (1) Schizoaffective disorder, depressive type: Status: Acute Code(s): F25.1 - Schizoaffective disorder, depressive type Assessment and Plan: Patient with schizoaffective disorder, depressed, with SI and command AH with plan to jump off bridge and reported OD on Seroquel a few days prior to evaluation. Plan: - Admit to inpatient psychiatry - CV - Collateral information from family and providers. - Milieu treatment and group therapy. - Medications: Will give Haldol 5 mg and Ativan 2 mg TID PRN agitation/psychosis. - Social work evaluation. - Disposition planning. 05/05: Start Seroquel 200 mg HS. DC Zyprexa. Continue Haldol and Ativan PRN. 05/08/24: Increase chlorpromazine to 75 mg tid Increase klonopin to 1 mg qid 05/10/24 Continue current treatment. 05/13: Continue tx 05/16: DC Seroquel Continue prn Seroquel Reason for continued inpatient stay Substantial Risk for: rapid decompensation Time Spent With Patient Time: Total time managing care of this patient today ____ minutes.
--- NOTE | 2024-05-16 10:55 | HO.ECTCONS_ITS ---
History of Present Illness Data of Consult Service Date: 05/15/24 Requesting physician: Laura Aaron Primary Care Provider: Philly Alcantar NP HPI Reason for consult: ECT evaluation psychiatric coverage for 05/15/2024 The patient is seen in evaluation chart reviewed case reviewed with nursing staff and with Laura Hobson nurse practitioner. The patient is a 39-year-old admitted to the psychiatric unit on 05/04 has a history of schizoaffective disorder. Patient was transferred from [facility] secondary to depressed mood mood instability increasing thoughts suicide complicated by paranoia auditory hallucinations to hurt himself. His very long history schizoaffective disorder in in the past had treatment with electroconvulsive therapy. His last hospitalization was at [facility] few months ago and there is also a history of traumatic brain injury as a child. Current stressors include losing his long-term psychiatric provider Elijah Amaya at [facility] and he reportedly had been s erved a restraining order and can not return to live with his parents. Has a history of gender dysphoria history of behavioral difficulties chronic psychosis PTSD with intrusive memories significant impulsivity and behavioral difficulties. The patient has been on one-to-one secondary to suicidality and he does become aggressive at times on the unit when is demands for specific treatment is not met. He was recently started Thorazine 100 t.i.d. he has had Haldol in the past has been on Haldol injectable long-acting he was recently started on Tegretol. He has been on benzodiazepines 2.5 mg clonazepam and has been on gabapentin 800 t.i.d. Patient has had trials in the past of Prozac sertraline Effexor Wellbutrin Seroquel olanzapine Risperdal reported history of Clozaril treatment history of ADHD There is a history of suicide attempts history of ECT at [facility] in [facility] last treatment about [facility] Medical History (Updated 05/16/24 @ 11:15 by Hossein Sanchez MD) Substance abuse Schizophrenia Polysubstance use disorder Cognitive capacity: Patient has a medical history of obesity hypertension smoking history of traumatic brain injury Functional capacity: independent ambulation Pertinent family history: no clear fam psych hx Social History Household Members: None Housing: Homeless Do you presently have visiting nurse or other home services: No Patient Tobacco Use Status: Former Tobacco user Tobacco use type: Cigarette Smoked in Last 30 Days: No e-Cigarette/Vaping Use: Never Used Patient Interested in Nicotine Replacement: No Patient Given Instructions on How to Stop Smoking: No Second Hand Smoke Exposure: No Use of substances other than those prescribed or required for medical reasons: Yes Substance Use Type: Crack/Cocaine, Marijuana and Opiates Substance Use Frequency: Weekly Last Used Substance: Weeks (ago) Currently Displaying Signs/Symptoms of Drug Intoxication Withdrawal: No Any prior treatment program specific to substance use: No Have you been hit, kicked, punched, or otherwise hurt by someone within the past year? If so, by whom?: No Do you feel safe in your current relationship?: No Current Relationship Is there a partner from a previous relationship who is making you feel unsafe now?: No Are you made to feel afraid or neglected: No Advance Directives: No Advance Directives Information Provided: No Suicidal Behavior: History of suicide attemps Current/Past Psychiatric Disorders: Chronic mental illess, Mood disorder and Psychotic disorder Wu Symptoms: Anhedonia, Anxiety, Command hallucinations and Impulsivity Access to Firearms: No Do you have thoughts of harming others: None Do you have a plan to hurt others: No Plan Recently lost weight without trying: No Eating poorly because of decreased appetite: No Nutrition Risks: No Nutritional Risk Poor oral hygiene: No service: No Sexual orientation: Unable to collect Meds Allergies Allergy/AdvReac Type Severity Reaction Status Date / Time Penicillins Allergy Intermediate Swelling Verified 05/04/24 02:45 acetaminophen [APAP] Allergy Unknown Verified 05/04/24 02:45 hydrocodone Allergy Unknown Verified 05/04/24 02:45 Active Medications: Current Medications Acetaminophen (Acetaminophen 325 Mg Tablet) 650 mg PO Q6H PRN PRN Reason: Headache/Pain Mild Scale (1-3) Last Admin: 05/16/24 10:20 Dose: 650 mg Al Hydroxide/Mg Hydroxide (Magnesium Hydrox/Alum Hydrox 30 Ml Oral.Susp) 30 ml PO Q6H PRN PRN Reason: Heartburn/Nausea Last Admin: 05/13/24 14:23 Dose: 30 ml Capsaicin (Capsaicin 0.025% Cream 60 Gm Tube) 1 appl TOPICAL QID PRN; Protocol PRN Reason: shoulder, ankle pain Carbamazepine (Carbamazepine Er 100 Mg Tab.Er.12h) 300 mg PO BID [facility] Last Admin: 05/16/24 10:15 Dose: 300 mg Chlorpromazine HCl (Chlorpromazine Hcl 100 Mg Tablet) 100 mg PO TID [facility] Last Admin: 05/16/24 10:16 Dose: 100 mg Clonazepam (Clonazepam 1 Mg Tablet) 1 mg PO BID [facility] Last Admin: 05/16/24 10:16 Dose: 1 mg Clonazepam (Clonazepam 0.5 Mg Tablet) 0.5 mg PO DAILY@1200 [facility] Last Admin: 05/15/24 11:34 Dose: 0.5 mg Clonidine HCl (Clonidine Hcl 0.1 Mg Tablet) 0.1 mg PO BID PRN; Protocol PRN Reason: anxiety Last Admin: 05/14/24 22:31 Dose: 0.1 mg Gabapentin (Gabapentin 400 Mg Capsule) 800 mg PO TID [facility] Last Admin: 05/16/24 10:15 Dose: 800 mg Haloperidol (Haloperidol 5 Mg Tablet) 5 mg PO TID PRN PRN Reason: Anxiety Last Admin: 05/15/24 21:26 Dose: 5 mg Hydroxyzine HCl (Hydroxyzine Hcl 25 Mg Tablet) 25 mg PO Q4H PRN PRN Reason: Anxiety Last Admin: 05/16/24 04:55 Dose: 25 mg Ibuprofen (Ibuprofen 800 Mg Tablet) 800 mg PO Q8H PRN PRN Reason: shoulder, foot pain Last Admin: 05/15/24 11:34 Dose: 800 mg Magnesium Hydroxide (Milk Of Magnesia 30 Ml Oral.Susp) 30 ml PO DAILY PRN PRN Reason: Constipation Last Admin: 05/12/24 17:21 Dose: 30 ml Nicotine Polacrilex (Nicotine Polacrilex 2 Mg Gum) 2 mg BUCCAL Q2H PRN PRN Reason: Nicotine Cravings Quetiapine Fumarate (Quetiapine Fumarate 100 Mg Tablet) 100 mg PO QID PRN PRN Reason: hallucinations Last Admin: 05/16/24 04:55 Dose: 100 mg Sertraline HCl (Sertraline Hcl 50 Mg Tablet) 50 mg PO DAILY [facility] Last Admin: 05/16/24 10:15 Dose: 50 mg Trazodone HCl (Trazodone Hcl 50 Mg Tablet) 50 mg PO BEDTIME MRX1 PRN PRN Reason: Insomnia Last Admin: 05/15/24 21:26 Dose: 50 mg Home Medications ?Medication ?Instructions ?Recorded ?Confirmed ?Last Taken ?Type buspirone 10 mg tablet 10 mg PO 6XD 05/04/24 05/04/24 Unknown History gabapentin 800 mg tablet 800 mg PO QID 05/04/24 05/04/24 Unknown History quetiapine 100 mg tablet 100 mg PO BEDTIME 05/04/24 05/04/24 Unknown History Physical Exam 2 Vital Signs and Narrative: Vital Signs: Last Vital Signs Temp 98.6 F 05/15/24 08:20 Pulse 68 05/15/24 08:20 Resp 16 05/15/24 08:20 BP 115/62 05/15/24 16:06 Pulse Ox 97 05/15/24 08:20 O2 Del Method Room Air 05/15/24 08:20 Psych: Appearance: disheveled Speech and movement: Clear speech present and Slurred speech present Affect: Labile affect present Attitude: B elligerent attititude/behavior present Thought content: Suicidality present, no homicidality and Hallucination(s) present Insight: Fair insight present (Psych) Judgement: Fair judgement present (Psych) Results Labs 05/04/24 08:34 Labs: Laboratory Results - last 24 hr 05/15/24 17:38 Carbamazepine 6.8 Assessment and Plan (1) Schizoaffective disorder, depressive type: Status: Acute (2) Chronic post-traumatic stress disorder (PTSD): Status: Acute (3) Substance abuse: Status: Acute Plan would consider restarting clozaril for cycling mood instability and psychosis inc tegretol as tolerated would have behavoiral care plan lot of situational and behavioral factors would not suggest ect at this time if above not helpful can reconsider would try and get clearer med hx right now on thorazine trial ? haldol dec Total time managing care of this patient today: 45 minutes.
[2024-05-16] MEDS: HaloperidoL 5 MG TABLET PO ×2 (11:41→18:23)
[2024-05-16] MEDS: clonazePAM 0.5 MG TABLET PO (11:41)
[2024-05-16 18:23] VITALS: BP 130/84
[2024-05-16] MEDS: cloNIDine HCL 0.1 MG TABLET PO (18:23)
[2024-05-16 20:00] VITALS: BP 126/88; PULSE 72; RESP 16; TEMP 36.9; O2SAT 95
[2024-05-16] MEDS: traZODone HCL 50 MG TABLET PO (23:51)
[2024-05-17 05:55] VITALS: BP 155/94
[2024-05-17] MEDS: cloNIDine HCL 0.1 MG TABLET PO ×2 (05:55→15:06)
[2024-05-17] MEDS: HaloperidoL 5 MG TABLET PO ×3 (05:56→16:39)
[2024-05-17 08:00] VITALS: RESP 14
[2024-05-17] MEDS: carBAMazepine ER 100 MG TAB.ER.12H 300 MG PO ×2 (09:58→20:27)
[2024-05-17] MEDS: Gabapentin 400 MG CAPSULE 800 MG PO ×3 (09:59→20:27)
[2024-05-17] MEDS: chlorproMAZINE HCl 100 MG TABLET PO ×3 (09:59→20:27)
[2024-05-17] MEDS: clonazePAM 1 MG TABLET PO ×2 (09:59→20:27)
[2024-05-17] MEDS: Sertraline HCL 50 MG TABLET PO (09:59)
[2024-05-17] MEDS: clonazePAM 0.5 MG TABLET PO (11:06)
--- NOTE | 2024-05-17 12:33 | HO.PSYCHPN ---
Subjective Subjective Date of Service: 05/17/24 Reason For Visit: Unspecified problem related to unspecified psychol Subjective Notes: Conditional Voluntary Interim History: Pt slept through the night. Pt off one to one, which then has triggered increase urges to self harm. Initially declined to sign behavioral plan, but later noted that he is in agreement with treatment with his primary treatment team. We discussed at length safe, unsafe behaviors and encouragement to seeking staff when having urges to self harm, which are not always reflection of suicidality. Pt on safety caden. Medication Compliance: Yes Side effects from medications: No Attending Groups: No Review of Systems Review of Systems Pain L shoulder, R foot Yes all other systems are reviewed and are negative Mental Status Exam Mental Status Exam Narrative: General appearance: Restless, anxious, pacing. Hospital gown. Unshaven. fair hygiene.? Eye contact: WNL. Musculoskeletal: +Psychomotor agitation. Legs bouncing when sitting. Normal muscle strength/tone, Normal gait and station, No abnormal involuntary movements like tremors, EPS or dyskinesia. Normal posture.??? Manner/behavior: Guarded Speech:? Fluent, with normal rate, tone and volume. Language: No receptive or expressive language impairment? Mood: I'm paranoid and anxious Affect: constricted range, irritable, congruent to mood and without lability? Thought process/associations: Linear with no flight of ideas or loose associations.?Perseverates on anxiety? Thought content:Paranoid.?? Hallucinations: AH. Command. Able to ask for help and doesn't have intent or plan to act on AH. No?flashbacks, nightmares or dissociation? ? Suicidality/self-destructive behavior: SI Homicidally/violence: none.? Reliability: fair.? ? Judgment: fair.? ? Insight: fair Cognition: Alert and oriented to time, place and person. Impulse control and emotional regulation: fair. Intelligence estimate: below average.? Patient Appearance: Appropriate Patient Orientation: Person, Place, Time and Situation Level of Consciousness: Alert Patient Behavior: Talkative, Cooperative, Anxious, Fearful, Distractible, Isolative and Good Eye Contact Mood Description: Depressed, Fearful, Anxious and Apprehensive Affect Description: Depressed, Anxious and Flat Patient Cognition Impaired: Yes Ability to Follow Directions: Fair Speech Pattern: Spontaneous Speech Memory Description: Episodic Impaired Diagnostics Vital Signs (24Hr): Vital Signs - 24 hr 05/16/24 18:23 05/16/24 20:00 05/17/24 05:55 Temperature 98.5 F Pulse Rate 72 Respiratory Rate 16 Blood Pressure 130/84 126/88 155/94 H Pulse Oximetry 95 Oxygen Delivery Method Room Air 05/17/24 08:00 Temperature Pulse Rate Respiratory Rate 14 Blood Pressure Pulse Oximetry Oxygen Delivery Method Labs 05/04/24 08:34 Labs: Laboratory Results - last 48 hr 05/15/24 17:38 Carbamazepine 6.8 Imaging Radiology Impressions: ITS Impressions Shoulder X-Ray 05/14/24 19:00 IMPRESSION: Normal left shoulder. Foot CT 05/14/24 19:35 IMPRESSION: 1. 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 Prominent osseous bridging along the second tarsometatarsal joint involving approximately 80% of the joint surface. Partial osseous bridging across the third tarsometatarsal joint involving approximately 40% of the joint surface. 2. 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 Medications Medications Current Medications Acetaminophen (Acetaminophen 325 Mg Tablet) 650 mg PO Q6H PRN PRN Reason: Headache/Pain Mild Scale (1-3) Last Admin: 05/16/24 10:20 Dose: 650 mg Al Hydroxide/Mg Hydroxide (Magnesium Hydrox/Alum Hydrox 30 Ml Oral.Susp) 30 ml PO Q6H PRN PRN Reason: Heartburn/Nausea Last Admin: 05/13/24 14:23 Dose: 30 ml Capsaicin (Capsaicin 0.025% Cream 60 Gm Tube) 1 appl TOPICAL QID PRN; Protocol PRN Reason: shoulder, ankle pain Carbamazepine (Carbamazepine Er 100 Mg Tab.Er.12h) 300 mg PO BID [facility] Last Admin: 05/17/24 09:58 Dose: 300 mg Chlorpromazine HCl (Chlorpromazine Hcl 100 Mg Tablet) 100 mg PO TID [facility] Last Admin: 05/17/24 09:59 Dose: 100 mg Clonazepam (Clonazepam 1 Mg Tablet) 1 mg PO BID [facility] Last Admin: 05/17/24 09:59 Dose: 1 mg Clonazepam (Clonazepam 0.5 Mg Tablet) 0.5 mg PO DAILY@1200 [facility] Last Admin: 05/17/24 11:06 Dose: 0.5 mg Clonidine HCl (Clonidine Hcl 0.1 Mg Tablet) 0.1 mg PO BID PRN; Protocol PRN Reason: anxiety Last Admin: 05/17/24 05:55 Dose: 0.1 mg Gabapentin (Gabapentin 400 Mg Capsule) 800 mg PO TID [facility] Last Admin: 05/17/24 09:59 Dose: 800 mg Haloperidol (Haloperidol 5 Mg Tablet) 5 mg PO TID PRN PRN Reason: Anxiety Last Admin: 05/17/24 11:06 Dose: 5 mg Hydroxyzine HCl (Hydroxyzine Hcl 25 Mg Tablet) 25 mg PO Q4H PRN PRN Reason: Anxiety Last Admin: 05/16/24 23:51 Dose: 25 mg Ibuprofen (Ibuprofen 800 Mg Tablet) 800 mg PO Q8H PRN PRN Reason: shoulder, foot pain Last Admin: 05/15/24 11:34 Dose: 800 mg Magnesium Hydroxide (Milk Of Magnesia 30 Ml Oral.Susp) 30 ml PO DAILY PRN PRN Reason: Constipation Last Admin: 05/12/24 17:21 Dose: 30 ml Nicotine Polacrilex (Nicotine Polacrilex 2 Mg Gum) 2 mg BUCCAL Q2H PRN PRN Reason: Nicotine Cravings Quetiapine Fumarate (Quetiapine Fumarate 100 Mg Tablet) 100 mg PO QID PRN PRN Reason: hallucinations Last Admin: 05/16/24 04:55 Dose: 100 mg Sertraline HCl (Sertraline Hcl 50 Mg Tablet) 50 mg PO DAILY [facility] Last Admin: 05/17/24 09:59 Dose: 50 mg Trazodone HCl (Trazodone Hcl 50 Mg Tablet) 50 mg PO BEDTIME MRX1 PRN PRN Reason: Insomnia Last Admin: 05/16/24 23:51 Dose: 50 mg Allergies Allergies Allergy/AdvReac Type Severity Reaction Status Date / Time Penicillins Allergy Intermediate Swelling Verified 05/04/24 02:45 acetaminophen [APAP] Allergy Unknown Verified 05/04/24 02:45 hydrocodone Allergy Unknown Verified 05/04/24 02:45 Assessment & Plan Assessment & Plan (1) Schizoaffective disorder, depressive type: Status: Acute Code(s): F25.1 - Schizoaffective disorder, depressive type Assessment and Plan: Patient with schizoaffective disorder, depressed, with SI and command AH with plan to jump off bridge and reported OD on Seroquel a few days prior to evaluation. Plan: - Admit to inpatient psychiatry - CV - Collateral information from family and providers. - Milieu treatment and group therapy. - Medications: Will give Haldol 5 mg and Ativan 2 mg TID PRN agitation/psychosis. - Social work evaluation. - Disposition planning. 05/05: Start Seroquel 200 mg HS. DC Zyprexa. Continue Haldol and Ativan PRN. 05/08/24: Increase chlorpromazine to 75 mg tid Increase klonopin to 1 mg qid 05/10/24 Continue current treatment. 05/13: Continue tx 05/16: DC Seroquel Continue prn Seroquel 05/17 continue tx. Reason for continued inpatient stay Substantial Risk for: harm to self and inability to function Time Spent With Patient Time: Total time managing care of this patient today ____ minutes.
--- NOTE | 2024-05-17 13:06 | PC.NURSE ---
New orders received for patient to be placed on 5 minute checks. Pt educated on change in observation status. Behavioral plan reviewed with patient. Pt verbalized he understood the plan but refused to sign it. Pt signed 3 day notice. Team updated of signed 3 day notice.
[2024-05-17 15:06] VITALS: BP 130/60
[2024-05-17] MEDS: hydrOXYzine HCL 25 MG TABLET PO ×2 (15:06→20:27)
[2024-05-17] MEDS: Acetaminophen 325 MG TABLET 650 MG PO (15:29)
[2024-05-17] MEDS: Ibuprofen 800 MG TABLET PO (15:29)
--- NOTE | 2024-05-17 16:57 | PC.NURSE ---
Pt retracted 3 day notice on 05/17/24. Appropriate persons notified and legal status updated in [facility]
[2024-05-17 20:00] VITALS: BP 159/83; PULSE 70; RESP 16; TEMP 36.9; O2SAT 98
[2024-05-17] MEDS: QUEtiapine Fumarate 100 MG TABLET PO (20:27)
[2024-05-18 08:00] VITALS: BP 140/77; PULSE 68; TEMP 36.7; O2SAT 98
[2024-05-18] MEDS: cloNIDine HCL 0.1 MG TABLET PO ×2 (08:35→16:57)
[2024-05-18] MEDS: Gabapentin 400 MG CAPSULE 800 MG PO ×3 (08:36→20:18)
[2024-05-18] MEDS: carBAMazepine ER 100 MG TAB.ER.12H 300 MG PO ×2 (08:36→20:18)
[2024-05-18] MEDS: HaloperidoL 5 MG TABLET PO ×2 (08:36→16:46)
[2024-05-18] MEDS: chlorproMAZINE HCl 100 MG TABLET PO ×3 (08:37→20:18)
[2024-05-18] MEDS: clonazePAM 1 MG TABLET PO ×2 (08:37→20:18)
[2024-05-18] MEDS: Sertraline HCL 50 MG TABLET PO (08:37)
--- NOTE | 2024-05-18 11:37 | HO.PSYCHPN ---
Subjective Subjective Date of Service: 05/18/24 Reason For Visit: Unspecified problem related to unspecified psychol Interim History: Met with patient; discussed with team Patient in better behavioral control today; asks if he can get back his clothing since has remained safe. Says that his suicidality and mood was up and down yesterday but today he is feeling much better. Asked if trazodone can be increased to 150 mg since he has continued insomnia. Patient in the milieu demonstrating good behavioral and impulse control. Mental Status Exam Mental Status Exam Narrative: Pt is alert and oriented; behavior is more cooperative and calm; patient is not in distress; dressed in hospital attire with unkempt, marginal adequate hygiene; mood is described as better and affect congruent, more calm; eye contact appropriate; Speech is normal rate, volume and prosody and not pressured; intermittent psychomotor agitation/retardation present, but less; thought process is goal directed; Thought content is on privileges, tx; otherwise no delusional content expressed; denies any SI/HI. There is no evidence of perceptual disturbance. Patients insight and judgment impaired but improving Diagnostics Vital Signs (24Hr): Vital Signs - 24 hr 05/17/24 15:06 05/17/24 20:00 05/18/24 08:00 Temperature 98.5 F 98.0 F Pulse Rate 70 68 Respiratory Rate 16 Blood Pressure 130/60 159/83 H 140/77 H Pulse Oximetry 98 98 Oxygen Delivery Method Room Air Room Air Labs 05/04/24 08:34 Imaging Radiology Impressions: ITS Impressions Shoulder X-Ray 05/14/24 19:00 IMPRESSION: Normal left shoulder. Foot CT 05/14/24 19:35 IMPRESSION: 1. 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 Prominent osseous bridging along the second tarsometatarsal joint involving approximately 80% of the joint surface. Partial osseous bridging across the third tarsometatarsal joint involving approximately 40% of the joint surface. 2. 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 Medications Medications Current Medications Acetaminophen (Acetaminophen 325 Mg Tablet) 650 mg PO Q6H PRN PRN Reason: Headache/Pain Mild Scale (1-3) Last Admin: 05/17/24 15:29 Dose: 650 mg Al Hydroxide/Mg Hydroxide (Magnesium Hydrox/Alum Hydrox 30 Ml Oral.Susp) 30 ml PO Q6H PRN PRN Reason: Heartburn/Nausea Last Admin: 05/13/24 14:23 Dose: 30 ml Capsaicin (Capsaicin 0.025% Cream 60 Gm Tube) 1 appl TOPICAL QID PRN; Protocol PRN Reason: shoulder, ankle pain Carbamazepine (Carbamazepine Er 100 Mg Tab.Er.12h) 300 mg PO BID [facility] Last Admin: 05/18/24 08:36 Dose: 300 mg Chlorpromazine HCl (Chlorpromazine Hcl 100 Mg Tablet) 100 mg PO TID [facility] Last Admin: 05/18/24 08:37 Dose: 100 mg Clonazepam (Clonazepam 1 Mg Tablet) 1 mg PO BID [facility] Last Admin: 05/18/24 08:37 Dose: 1 mg Clonazepam (Clonazepam 0.5 Mg Tablet) 0.5 mg PO DAILY@1200 [facility] Last Admin: 05/17/24 11:06 Dose: 0.5 mg Clonidine HCl (Clonidine Hcl 0.1 Mg Tablet) 0.1 mg PO BID PRN; Protocol PRN Reason: anxiety Last Admin: 05/18/24 08:35 Dose: 0.1 mg Gabapentin (Gabapentin 400 Mg Capsule) 800 mg PO TID [facility] Last Admin: 05/18/24 08:36 Dose: 800 mg Haloperidol (Haloperidol 5 Mg Tablet) 5 mg PO TID PRN PRN Reason: Anxiety Last Admin: 05/18/24 08:36 Dose: 5 mg Hydroxyzine HCl (Hydroxyzine Hcl 25 Mg Tablet) 25 mg PO Q4H PRN PRN Reason: Anxiety Last Admin: 05/17/24 20:27 Dose: 25 mg Ibuprofen (Ibuprofen 800 Mg Tablet) 800 mg PO Q8H PRN PRN Reason: shoulder, foot pain Last Admin: 05/17/24 15:29 Dose: 800 mg Magnesium Hydroxide (Milk Of Magnesia 30 Ml Oral.Susp) 30 ml PO DAILY PRN PRN Reason: Constipation Last Admin: 05/12/24 17:21 Dose: 30 ml Nicotine Polacrilex (Nicotine Polacrilex 2 Mg Gum) 2 mg BUCCAL Q2H PRN PRN Reason: Nicotine Cravings Quetiapine Fumarate (Quetiapine Fumarate 100 Mg Tablet) 100 mg PO QID PRN PRN Reason: hallucinations Last Admin: 05/17/24 20:27 Dose: 100 mg Sertraline HCl (Sertraline Hcl 50 Mg Tablet) 50 mg PO DAILY [facility] Last Admin: 05/18/24 08:37 Dose: 50 mg Trazodone HCl (Trazodone Hcl 50 Mg Tablet) 50 mg PO BEDTIME MRX1 PRN PRN Reason: Insomnia Last Admin: 05/16/24 23:51 Dose: 50 mg Allergies Allergies Allergy/AdvReac Type Severity Reaction Status Date / Time Penicillins Allergy Intermediate Swelling Verified 05/04/24 02:45 acetaminophen [APAP] Allergy Unknown Verified 05/04/24 02:45 hydrocodone Allergy Unknown Verified 05/04/24 02:45 Assessment & Plan Assessment & Plan (1) Schizoaffective disorder, depressive type: Status: Acute Code(s): F25.1 - Schizoaffective disorder, depressive type Assessment and Plan: Patient with schizoaffective disorder, depressed, with SI and command AH with plan to jump off bridge and reported OD on Seroquel a few days prior to evaluation. 05/05: Start Seroquel 200 mg HS. DC Zyprexa. Continue Haldol and Ativan PRN. 05/08/24: Increase chlorpromazine to 75 mg tid Increase klonopin to 1 mg qid 05/10/24 Continue current treatment. 05/13: Continue tx 05/16: DC Seroquel Continue prn Seroquel 05/17 continue tx. 05/18 Patient in better behavioral control today; asks if he can get back his clothing since has remained safe. Says that his suicidality and mood was up and down yesterday but today he is feeling much better. Asked if trazodone can be increased to 150 mg since he has continued insomnia. Patient in the milieu demonstrating good behavioral and impulse control. -increase trazodone to 150 mg q.h.s. per patient request -clonazepam fell off; knowing the note talks about this being discontinued so copywriter restarted Plan: - CV q5's (off 1:1) - Collateral information from family and providers. - Milieu treatment and group therapy. - Medications: Will give Haldol 5 mg and Ativan 2 mg TID PRN agitation/psychosis. - Social work evaluation. - Disposition planning. Patient educated on: diagnosis, medication risk/benefits and therapeutic strategies Informed Consent: understands Reason for continued inpatient stay Substantial Risk for: rapid decompensation Time Spent With Patient Time: Total time managing care of this patient today ____ minutes.
[2024-05-18] MEDS: clonazePAM 0.5 MG TABLET PO (12:21)
[2024-05-18] MEDS: QUEtiapine Fumarate 100 MG TABLET PO ×2 (15:14→22:28)
[2024-05-18] MEDS: Acetaminophen 325 MG TABLET 650 MG PO (15:14)
[2024-05-18] MEDS: Ibuprofen 800 MG TABLET PO (15:15)
[2024-05-18 16:55] VITALS: BP 114/60; PULSE 81
[2024-05-18] MEDS: hydrOXYzine HCL 25 MG TABLET PO (20:18)
[2024-05-18] MEDS: traZODone HCL 100 MG TABLET PO (22:27)
[2024-05-19] MEDS: traZODone HCL 100 MG TABLET PO ×2 (00:33→21:11)
[2024-05-19] MEDS: QUEtiapine Fumarate 100 MG TABLET PO ×2 (01:22→21:11)
[2024-05-19 02:59] VITALS: BP 134/80
[2024-05-19] MEDS: HaloperidoL 5 MG TABLET PO ×3 (02:59→17:19)
[2024-05-19] MEDS: cloNIDine HCL 0.1 MG TABLET PO ×4 (02:59→21:11)
[2024-05-19 07:30] VITALS: BP 128/73; PULSE 69; RESP 15; TEMP 36.5; O2SAT 97
[2024-05-19] MEDS: Gabapentin 400 MG CAPSULE 800 MG PO ×3 (08:53→20:05)
[2024-05-19] MEDS: clonazePAM 1 MG TABLET PO ×2 (08:53→20:05)
[2024-05-19] MEDS: carBAMazepine ER 100 MG TAB.ER.12H 300 MG PO ×2 (08:53→20:05)
[2024-05-19] MEDS: chlorproMAZINE HCl 100 MG TABLET PO (08:54)
[2024-05-19] MEDS: Sertraline HCL 50 MG TABLET PO (08:54)
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
[2024-05-19] MEDS: hydrOXYzine HCL 25 MG TABLET PO ×2 (10:53→20:04)
[2024-05-19] MEDS: clonazePAM 0.5 MG TABLET PO (11:35)
[2024-05-19] MEDS: chlorproMAZINE HCl 25 MG TABLET 50 MG PO (14:13)
[2024-05-19] MEDS: Sertraline HCL 25 MG TABLET PO (14:14)
[2024-05-19 17:19] VITALS: BP 122/65
[2024-05-19 20:00] VITALS: BP 107/60; PULSE 73; RESP 18; TEMP 36.6; O2SAT 97
[2024-05-19 20:04] VITALS: BP 107/60
[2024-05-19] MEDS: chlorproMAZINE HCl 100 MG TABLET 200 MG PO (20:04)
[2024-05-19] MEDS: Acetaminophen 325 MG TABLET 650 MG PO (20:05)
[2024-05-19 21:11] VITALS: BP 107/60
[2024-05-20 05:16] VITALS: BP 106/61
[2024-05-20] MEDS: HaloperidoL 5 MG TABLET PO ×3 (05:16→17:59)
[2024-05-20] MEDS: cloNIDine HCL 0.1 MG TABLET PO ×2 (05:16→20:05)
[2024-05-20] MEDS: hydrOXYzine HCL 25 MG TABLET PO ×3 (09:08→22:34)
[2024-05-20] MEDS: carBAMazepine ER 100 MG TAB.ER.12H 300 MG PO ×2 (09:08→20:05)
[2024-05-20] MEDS: Sertraline HCL 25 MG TABLET 75 MG PO (09:08)
[2024-05-20] MEDS: Gabapentin 400 MG CAPSULE 800 MG PO ×3 (09:09→20:05)
[2024-05-20] MEDS: clonazePAM 1 MG TABLET PO ×2 (09:09→20:06)
[2024-05-20] MEDS: chlorproMAZINE HCl 100 MG TABLET PO (09:09)
[2024-05-20] MEDS: clonazePAM 0.5 MG TABLET PO (11:36)
[2024-05-20] MEDS: chlorproMAZINE HCl 25 MG TABLET 50 MG PO (15:37)
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
[2024-05-20 20:00] VITALS: BP 126/62; PULSE 82; RESP 18; TEMP 36.8; O2SAT 96
[2024-05-20] MEDS: QUEtiapine Fumarate 100 MG TABLET PO (20:05)
[2024-05-20] MEDS: traZODone HCL 100 MG TABLET PO (20:06)
[2024-05-20] MEDS: chlorproMAZINE HCl 100 MG TABLET 200 MG PO (20:06)
[2024-05-21 06:10] VITALS: BP 122/78
[2024-05-21] MEDS: cloNIDine HCL 0.1 MG TABLET PO (06:10)
[2024-05-21] MEDS: HaloperidoL 5 MG TABLET PO (06:10)
[2024-05-21 08:04] VITALS: BP 114/56; PULSE 79; TEMP 36.3; O2SAT 98
[2024-05-21] MEDS: chlorproMAZINE HCl 100 MG TABLET PO (08:34)
[2024-05-21] MEDS: Sertraline HCL 25 MG TABLET 75 MG PO (08:34)
[2024-05-21] MEDS: Gabapentin 400 MG CAPSULE 800 MG PO (08:34)
[2024-05-21] MEDS: carBAMazepine ER 100 MG TAB.ER.12H 300 MG PO (08:34)
[2024-05-21] MEDS: clonazePAM 1 MG TABLET PO (08:34)
[2024-05-21 08:48] LABS: MANUAL DIFF FLAG NO
[2024-05-21 08:52] LABS: Basophils Absolute Auto 0.1 X10*3/uL (0.0-0.2); Basophils Percent Auto 0.6 % (0-2); Eosinophils Absolute Auto 0.4 X10*3/uL (0.0-0.4); Hematocrit 42.2 % (42.0-52.0); Hemoglobin 14.3 g/dl (14.0-18.0); Imm Gran Abs Auto 0.07 X10*3/uL (0.00-0.03); Imm Gran Pct Auto 0.9 % (0.0-0.4); Lymphocytes Percent Auto 24.7 % (20-40); Mean Corpuscular HGB Conc 33.9 g/dl (31.0-36.0); Mean Corpuscular Hemoglobin 31.8 pg (27.0-33.0); Mean Platelet Volume 9.4 fL (9.4-12.4); Monocytes Absolute Auto 0.6 X10*3/uL (0.1-1.2); Monocytes Percent Auto 7.4 % (2-11); Neutrophils Percent Auto 61.4 % (45-73); Platelet Count 299 X10*3/uL (160-400); Red Blood Count 4.49 X10*6/uL (4.60-5.80); Red Cell Distribution Width 12.3 % (11.0-16.0); White Blood Count 8.1 X10*3/uL (4.8-10.8)
[2024-05-21 09:11] LABS: Carbamazepine Tegretol 4.7 mcg/mL (5.0-12.0)
[2024-05-21 09:12] LABS: Alanine Aminotransferase 23 U/L (0-40); Albumin Level 4.2 g/dL (3.5-5.0); Alkaline Phosphatase 81 U/L (39-117); Anion Gap 11 (12-20); Aspartate Amino Transferase 16 U/L (5-37); Bilirubin Total 0.1 mg/dL (0.0-1.0); Blood Urea Nitrogen 15 mg/dL (9-16); Calcium 9.3 mg/dL (8.4-10.2); Carbon Dioxide 27 mmol/L (22-29); Chloride 104 mmol/L (96-108); Estimated Glomerular Filt Rate > 60; Glucose Random 89 mg/dL (60-115); Sodium 138 mmol/L (135-145); Total Protein 7.2 g/dL (6.5-8.0)
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
== END 2024-05-21 10:55 | disposition other institution (70) | DRG 885 ==
PROVIDERS: Psychiatry & Neurology Psychiatry; Admitting Provider Psychiatry & Neurology Psychiatry; PCP Nurse Practitioner Family; Visit Provider Clinical Nurse Specialist Psychiatric/Mental Health, Adult
DX: F25.1 Schizoaffective disorder, depressive type (principal); R45.851 Suicidal ideations; Z59.02 Unsheltered homelessness; M79.671 Pain in right foot; F43.12 Post-traumatic stress disorder, chronic; G89.29 Other chronic pain; F64.0 Transsexualism; F19.90 Other psychoactive substance use, unspecified, uncomplicated; Z87.891 Personal history of nicotine dependence; Z79.899 Other long term (current) drug therapy
CPT/HCPCS: 36415; 73030; 73700; 80053; 80061; 80156; 85025; 93005

== ENCOUNTER → 2024-05-03 21:28 | Outpatient (BNV) | payer OTHER, SELFPAY | PROVIDERS: Admitting Provider Psychiatry & Neurology Psychiatry; PCP Nurse Practitioner Family; Visit Provider Psychiatry & Neurology Psychiatry | DX: F25.1 Schizoaffective disorder, depressive type (principal) | CPT/HCPCS: 90792; 99231; 99232; 99238 ==

== ENCOUNTER → 2024-05-03 21:28 | Outpatient (BNV) | payer OTHER, SELFPAY | PROVIDERS: Admitting Provider Psychiatry & Neurology Psychiatry; PCP Nurse Practitioner Family; Visit Provider Psychiatry & Neurology Psychiatry | DX: F25.1 Schizoaffective disorder, depressive type (principal); F43.12 Post-traumatic stress disorder, chronic; F19.10 Other psychoactive substance abuse, uncomplicated | CPT/HCPCS: 99499 ==

== ENCOUNTER → 2024-05-03 21:28 | Outpatient (BNV) | payer OTHER, SELFPAY | PROVIDERS: Admitting Provider Psychiatry & Neurology Psychiatry; PCP Nurse Practitioner Family; Visit Provider Student in an Organized Health Care Education/Training Program | DX: Z02.2 Encounter for examination for admission to residential institution (principal) | CPT/HCPCS: 99429 ==